=== PATIENT | female | born 1945 | race Caucasian/White ===

== ENCOUNTER → 2016-07-26 | Outpatient (CLI) | payer BC ==
[~2016-07-26] MED LIST: ASPCH81X PO; CEPH500C2 PO; HYDR-5688 PO; LOVA40TA3 PO; METO25TA3 PO; POTA12PO5 PO; SENNTAB23 PO; TEMA30CA4 PO; VALS160T58 PO; ZNT/150 PO
[2016-07-26 12:45] LABS: BASO % 0.5 %; BASO ABS # 0.06 K/uL (0-0.2); COMPLETE YES; EOS % 1.7 %; HEMATOCRIT 42.3 % (37-47); IG% 0.2 %; LYMPH % 25.3 %; LYMPH ABS # 3.24 K/uL (1.2-3.4); MEAN CELL VOLUME 87.6 fL (80-100); MEAN CORPUSCULAR HGB CONC 34.3 g/dl (32-36); MEAN PLATELET VOLUME 9.4 fL (7.4-10.4); MONO % 5.9 %; NEUT % 66.4 %; PLATELET COUNT 354 K/uL (130-400); RED BLOOD COUNT 4.83 M/uL (4.2-5.4); WHITE BLOOD COUNT 12.83 K/uL (4.8-10.8)
[2016-07-26 13:14] LABS: BLOOD UREA NITROGEN 13 mg/dl (7-18); BUN/CREATININE RATIO 15.5 (10-20); CALCIUM 8.8 mg/dl (8.5-10.1); CARBON DIOXIDE 28 mmol/L (21-32); CHLORIDE 101 mmol/L (98-107); CHOLESTEROL 199 mg/dl (0-200); CREATININE 0.86 mg/dl (0.60-1.20); GLUCOSE 108 mg/dl (70-99); POTASSIUM 3.6 mmol/L (3.5-5.1); SODIUM 139 mmol/L (136-145)
[2016-07-26 13:17] LABS: ALKALINE PHOSPHATASE 70 U/L (45-117); ALT/SGPT 34 U/L (12-78); AST/SGOT 15 U/L (15-37); CHOLESTEROL/HDL RATIO 3.1; HDL CHOLESTEROL 64 mg/dl; LDL CHOLESTEROL CALCULATED 114 mg/dl; TRIGLYCERIDES 105 mg/dl (0-150); VERY LOW DENSITY LIPOPROT CALC 21 mg/dl
[2016-07-26 13:24] LABS: RATIO 9.5 mcg/mg (0-30.0)
[2016-07-26 13:41] LABS: ESTIMATED AVERAGE GLUCOSE 151 mg/dl; HA1C FLAG Normal (Normal)
== END | disposition home or self-care (01) ==
LOC: C.LABPBG 09:47
PROVIDERS: ATTEND Family Medicine
DX: I10 Essential (primary) hypertension (principal); E78.00 Pure hypercholesterolemia, unspecified; E11.9 Type 2 diabetes mellitus without complications; I25.10 Atherosclerotic heart disease of native coronary artery without angina pectoris; E55.9 Vitamin D deficiency, unspecified

== ENCOUNTER → 2016-09-13 | Outpatient (CLI) | payer BC ==
[~2016-09-13] MED LIST changes: -CEPH500C2 PO; -HYDR-5688 PO
[2016-09-13 12:21] LABS: BASO % 0.2 %; BASO ABS # 0.03 K/uL (0-0.2); COMPLETE YES; EOS % 1.7 %; IG% 0.4 %; LYMPH % 21.7 %; LYMPH ABS # 2.87 K/uL (1.2-3.4); MEAN CELL VOLUME 88.3 fL (80-100); MEAN CORPUSCULAR HEMOGLOBIN 29.8 pg (25-34); MEAN CORPUSCULAR HGB CONC 33.8 g/dl (32-36); MEAN PLATELET VOLUME 9.3 fL (7.4-10.4); MONO % 6.3 %; NEUT % 69.7 %; PLATELET COUNT 399 K/uL (130-400); RED BLOOD COUNT 4.53 M/uL (4.2-5.4)
== END | disposition home or self-care (01) ==
LOC: C.LABPBG 10:30
PROVIDERS: ATTEND Family Medicine
DX: D72.829 Elevated white blood cell count, unspecified (principal)

== ENCOUNTER → 2016-10-22 | Outpatient (CLI) | payer BC ==
[2016-10-22 15:39] LABS: BASO % 0.3 %; BASO ABS # 0.06 K/uL (0-0.2); COMPLETE YES; HEMATOCRIT 42.8 % (37-47); IG% 0.3 %; LYMPH % 19.1 %; LYMPH ABS # 3.34 K/uL (1.2-3.4); MEAN CELL VOLUME 88.2 fL (80-100); MEAN CORPUSCULAR HEMOGLOBIN 29.3 pg (25-34); MEAN CORPUSCULAR HGB CONC 33.2 g/dl (32-36); MEAN PLATELET VOLUME 9.2 fL (7.4-10.4); MONO % 4.5 %; NEUT % 74.8 %; PLATELET COUNT 431 K/uL (130-400); RED BLOOD COUNT 4.85 M/uL (4.2-5.4); WHITE BLOOD COUNT 17.51 K/uL (4.8-10.8)
== END | disposition home or self-care (01) ==
LOC: C.LAB1850 14:14
PROVIDERS: ATTEND Family Medicine
DX: D72.829 Elevated white blood cell count, unspecified (principal)

== ENCOUNTER → 2017-01-04 | Outpatient (CLI) | payer BC ==
--- NOTE | 2017-01-05 07:58 | MAMMOGRAPHY REPORT ---
BILATERAL DIGITAL SCREENING MAMMOGRAM WITH CAD: 01/04/2017 CLINICAL HISTORY: Routine screening. TECHNIQUE: Bilateral CC and MLO views were obtained. Current study was also evaluated with a Compute r Aided Detection (CAD) system. COMPARISON: Comparison is made to exams dated: 08/15/2015 mammogram, 08/12/2014 mammogram, 08/10/2013 m ammogram, 07/03/2012 mammogram, 07/01/2011 mammogram, and 06/30/2010 mammogram - [facility]. BREAST COMPOSITION: The tissue of both breasts is almost entirely fatty. FINDINGS: A 6 mm oval circumscribed mass in the lateral right breast is stable in size and appearance dating back to at least 04/20/2007, therefore likely benign. There are scattered benign-appearing c oarse and rodlike calcifications bilaterally. No suspicious mass, architectural distortion or cluste r of microcalcifications is seen. IMPRESSION: ACR BI-RADS CATEGORY 1: NEGATIVE There is no mammographic evidence of malignancy. A 1 year screening mammogram is recommended. The pa tient will receive written notification of the results. Approximately 10% of breast cancers are not detected with mammography. A negative mammographic report should not delay biopsy if a clinically suggestive mass is present. Glo Aranda M.D. ay/:01/04/2017 15:04:37 Skilled Nursing Facility Counselor: Marva HOROWITZ(R)(M), [facility] letter sent: Normal 1/2 BI-RADS Code: ACR BI-RADS Category 1: Negative
== END | disposition home or self-care (01) ==
LOC: C.MAMM 14:35
PROVIDERS: ATTEND Obstetrics & Gynecology
DX: Z12.31 Encounter for screening mammogram for malignant neoplasm of breast (principal)

== ENCOUNTER → 2017-02-21 | Outpatient (CLI) | payer BC ==
[2017-02-21 12:16] LABS: ALT/SGPT 35 U/L (12-78); AST/SGOT 16 U/L (15-37); BLOOD UREA NITROGEN 12 mg/dl (7-18); BUN/CREATININE RATIO 15.3 (10-20); CALCIUM 9.1 mg/dl (8.5-10.1); CARBON DIOXIDE 28 mmol/L (21-32); CHLORIDE 102 mmol/L (98-107); CHOLESTEROL 162 mg/dl (0-200); CREATININE 0.76 mg/dl (0.60-1.20); GLUCOSE 102 mg/dl (70-99); POTASSIUM 3.7 mmol/L (3.5-5.1); SODIUM 139 mmol/L (136-145); TRIGLYCERIDES 130 mg/dl (0-150); VERY LOW DENSITY LIPOPROT CALC 26 mg/dl
[2017-02-21 12:26] LABS: ALKALINE PHOSPHATASE 78 U/L (45-117); CHOLESTEROL/HDL RATIO 2.5; HDL CHOLESTEROL 64 mg/dl; LDL CHOLESTEROL CALCULATED 72 mg/dl
== END | disposition home or self-care (01) ==
LOC: C.LABPBG 09:21
PROVIDERS: ATTEND Family Medicine
DX: I10 Essential (primary) hypertension (principal); E78.00 Pure hypercholesterolemia, unspecified; E11.9 Type 2 diabetes mellitus without complications; I25.10 Atherosclerotic heart disease of native coronary artery without angina pectoris

== ENCOUNTER → 2017-03-09 | Outpatient (CLI) | payer BC ==
[2017-03-09 12:02] LABS: BASO % 0.4 %; BASO ABS # 0.05 K/uL (0-0.2); COMPLETE YES; EOS % 1.6 %; HEMATOCRIT 40.2 % (37-47); IG% 0.4 %; LYMPH % 24.2 %; LYMPH ABS # 3.01 K/uL (1.2-3.4); MEAN CELL VOLUME 84.3 fL (80-100); MEAN CORPUSCULAR HEMOGLOBIN 28.9 pg (25-34); MEAN CORPUSCULAR HGB CONC 34.3 g/dl (32-36); MEAN PLATELET VOLUME 9.4 fL (7.4-10.4); MONO % 5.5 %; NEUT % 67.9 %; PLATELET COUNT 339 K/uL (130-400); RED BLOOD COUNT 4.77 M/uL (4.2-5.4); WHITE BLOOD COUNT 12.45 K/uL (4.8-10.8)
== END | disposition home or self-care (01) ==
LOC: C.LABPBG 10:57
PROVIDERS: ATTEND Family Medicine
DX: D72.829 Elevated white blood cell count, unspecified (principal)

== ENCOUNTER → 2017-08-02 | Outpatient (CLI) | payer BC ==
--- NOTE | 2017-08-02 13:45 | DIAGNOSTIC IMAGING REPORT ---
R HIP UNILATERAL 2 VIEWS CLINICAL HISTORY: M25.551 Right hip [id number] pain COMPARISON: None. DISCUSSION: Mild degenerative narrowing right hip joint space. Mild sclerosis of the acetabular margins. Mild peripheral osteophytic reaction from the acetabulum. No evidence for fracture or dislocation. No acetabular protrusion. There is no evidence for soft tissue swelling. IMPRESSION: Mild/moderate degenerative change right hip. No acute process. The above report was generated using voice recognition software. It may contain grammatical, syntax or spelling errors. Electronically signed by: Emmett Gonzales M.D. 08/02/2017 1:43 PM Dictated Date/Time: 08/02/2017 1:43 PM
--- NOTE | 2017-08-02 13:59 | DIAGNOSTIC IMAGING REPORT ---
LUMBAR SPINE 5 VIEWS HISTORY: M54.5 Low back painR29.898 Leg weakness COMPARISON: Lumbar spine 10/22/2014. FINDINGS: There is no fracture. No subluxation. Disc spaces within the lumbar spine are preserved. Moderate facet osteoarthritis within the mid to lower lumbar spine which has progressed. Mild to moderate degenerative disc disease at T10-11 which has progressed. IMPRESSION: 1. No fracture or subluxation within the lumbar spine. 2. Moderate facet osteoarthritis within the mid to lower lumbar spine. This has progressed. 3. Progressive mild to moderate degenerative disc disease at T10-11. Electronically signed by: Sean Casanova M.D. 08/02/2017 1:58 PM Dictated Date/Time: 08/02/2017 1:56 PM
== END | disposition home or self-care (01) ==
LOC: C.RADBC 13:01
PROVIDERS: ATTEND Family Medicine
DX: M25.551 Pain in right hip (principal); M54.5 Low back pain; R29.898 Other symptoms and signs involving the musculoskeletal system

== ENCOUNTER → 2017-10-11 | Outpatient (CLI) | payer BC ==
[2017-10-11 13:29] LABS: BASO % 0.1 %; BASO ABS # 0.02 K/uL (0-0.2); EOS % 0.9 %; EOS ABS # 0.15 K/uL (0-0.5); HEMATOCRIT 41.5 % (37-47); HEMOGLOBIN 14.1 g/dL (12.0-16.0); IG# 0.07 K/uL (0.00-0.02); LYMPH % 17.6 %; MEAN CELL VOLUME 87.4 fL (80-100); MEAN CORPUSCULAR HEMOGLOBIN 29.7 pg (25-34); MEAN PLATELET VOLUME 9.5 fL (7.4-10.4); MONO % 6.5 %; MONO ABS # 1.15 K/uL (0.11-0.59); NEUT % 74.5 %; NEUT ABS # 13.13 K/uL (1.4-6.5); PLATELET COUNT 408 K/uL (130-400); RED CELL DISTRIBUTION WIDTH CV 14.2 % (11.5-14.5); RED CELL DISTRIBUTION WIDTH SD 45.1 fL (36.4-46.3); WHITE BLOOD COUNT 17.62 K/uL (4.8-10.8)
[2017-10-11 13:40] LABS: HEMOGLOBIN A1C 7.2 % (4.5-5.6)
[2017-10-11 14:12] LABS: ALBUMIN 3.1 gm/dl (3.4-5.0); ALKALINE PHOSPHATASE 70 U/L (45-117); ALT/SGPT 33 U/L (12-78); AST/SGOT 12 U/L (15-37); BLOOD UREA NITROGEN 17 mg/dl (7-18); CALCIUM 8.8 mg/dl (8.5-10.1); CARBON DIOXIDE 27 mmol/L (21-32); CHOLESTEROL 187 mg/dl (0-200); CREATININE 0.89 mg/dl (0.60-1.20); GLUCOSE 121 mg/dl (70-99); LDL CHOLESTEROL CALCULATED 103 mg/dl; POTASSIUM 3.5 mmol/L (3.5-5.1); SODIUM 138 mmol/L (136-145); TOTAL PROTEIN 6.7 gm/dl (6.4-8.2)
== END | disposition home or self-care (01) ==
LOC: C.LABPBG 08:58
PROVIDERS: ATTEND Family Medicine
DX: I10 Essential (primary) hypertension (principal); E78.00 Pure hypercholesterolemia, unspecified; E11.9 Type 2 diabetes mellitus without complications; I25.10 Atherosclerotic heart disease of native coronary artery without angina pectoris; D72.829 Elevated white blood cell count, unspecified; E55.9 Vitamin D deficiency, unspecified

== ENCOUNTER → 2017-12-14 | Outpatient (CLI) | payer BC ==
--- NOTE | 2017-12-14 13:32 | DIAGNOSTIC IMAGING REPORT ---
NUCLEAR GASTRIC EMPTYING STUDY: CLINICAL HISTORY: Nausea, early satiety. COMPARISON STUDY: None TECHNIQUE: Following the oral administration of 1.1 mCi of technetium 99m sulfur colloid in egg sandwich and 8 ounces of water, static abdominal images are performed anteriorly and posteriorly at 0 minutes, 1 hour, 2 hours, and 4 hour time intervals. Gastric emptying was calculated utilizing the geometric mean method. FINDINGS: There is approximately 48 % gastric activity remaining at the 1 hour time interval, 13 % at the 2 hour time interval (normal is less than 60%), and 0 % remaining at the 4 hour time interval (normal is less than 10%). These findings are consistent with a normal study IMPRESSION: Findings are consistent with a normal study Electronically signed by: Brandon Gentile M.D. 12/14/2017 1:30 PM Dictated Date/Time: 12/14/2017 1:30 PM
== END | disposition home or self-care (01) ==
LOC: C.NUCL 08:27
PROVIDERS: ATTEND Family Medicine
DX: R68.81 Early satiety (principal); R11.0 Nausea

== ENCOUNTER 2022-11-04 07:26 | Observation (INO) ==
--- NOTE | 2022-10-04 11:32 | PAT Medication Instructions ---
Medication Instructions Date of Service October 04, 2022 Home Medications Medication Instructions Recorded cholecalciferol (vitamin D3) 50 50 mcg PO DAILY #30 caps 10/09/19 mcg (2,000 unit) capsule hydrochlorothiazide 12.5 mg tablet 12.5 mg PO DAILY #90 tabs 01/14/22 lovastatin 40 mg tablet 40 mg PO PM #90 tabs 01/14/22 nitroglycerin 0.4 mg sublingual 0.4 mg sublingual UD PRN chest 01/14/22 tablet pain #25 tabs omeprazole 20 mg tablet,delayed 20 mg PO BID #180 tabs 01/14/22 release metformin 500 mg tablet 250 mg PO BID #180 tabs 02/12/22 Wheeled Walker #1 ea 05/10/22 blood sugar diagnostic (OneTouch #100 ea 05/10/22 Ultra Test strips) ferrous sulfate 325 mg (65 mg 325 mg PO DAILY #90 tabs 06/11/22 iron) tablet,delayed release potassium chloride 20 mEq 20 meq PO BID #180 tabs 06/11/22 tablet,extended release gabapentin 600 mg tablet 600 mg PO HS #90 tabs 07/30/22 temazepam 15 mg capsule 15 mg PO HS PRN Sleep #30 caps 07/30/22 valsartan 320 mg tablet (Diovan) 320 mg PO DAILY #90 tabs 09/08/22 aspirin 81 mg tablet 81 mg PO QAM cholecalciferol (vitamin D3) 50 mcg (2,000 unit) capsule 50 mcg PO DAILY hydrochlorothiazide 12.5 mg tablet 12.5 mg PO DAILY lovastatin 40 mg tablet 40 mg PO PM nitroglycerin 0.4 mg sublingual tablet 0.4 mg sublingual UD PRN omeprazole 20 mg tablet,delayed release 20 mg PO BID metformin 500 mg tablet 250 mg PO BID ferrous sulfate 325 mg (65 mg iron) tablet,delayed release 325 mg PO DAILY potassium chloride 20 mEq tablet,extended release 20 meq PO BID gabapentin 600 mg tablet 600 mg PO HS temazepam 15 mg capsule 15 mg PO HS PRN valsartan 320 mg tablet (Diovan) 320 mg PO DAILY biotin 5 mg tablet 5 mg PO QAM Continue as directed nitroglycerin 0.4 mg sublingual tablet 0.4 mg sublingual UD PRN(if needed) STOP taking 2 weeks before surgery (or as soon as possible if surgery is within 2 weeks) biotin 5 mg tablet 5 mg PO QAM DO NOT take the morning of surgery cholecalciferol (vitamin D3) 50 mcg (2,000 unit) capsule 50 mcg PO DAILY hydrochlorothiazide 12.5 mg tablet 12.5 mg PO DAILY metformin 500 mg tablet 250 mg PO BID ferrous sulfate 325 mg (65 mg iron) tablet,delayed release 325 mg PO DAILY potassium chloride 20 mEq tablet,extended release 20 meq PO BID valsartan 320 mg tablet (Diovan) 320 mg PO DAILY Take morning of surgery With a small sip of water, OTHERWISE NOTHING TO EAT OR DRINK AFTER MIDNIGHT: aspirin 81 mg tablet 81 mg PO QAM (unless directed otherwise by surgeon) omeprazole 20 mg tablet,delayed release 20 mg PO BID Take evening before surgery lovastatin 40 mg tablet 40 mg PO PM omeprazole 20 mg tablet,delayed release 20 mg PO BID metformin 500 mg tablet 250 mg PO BID potassium chloride 20 mEq tablet,extended release 20 meq PO BID gabapentin 600 mg tablet 600 mg PO HS temazepam 15 mg capsule 15 mg PO HS PRN(if needed) Other Notes If you have any questions please call us at [phone] or [phone] or [phone] or [phone]
--- NOTE | 2022-10-11 13:31 | Anesthesiology Consultation ---
Date of Service October 11, 2022 Assessment & Plan (1) Encounter for pre-operative examination: - leukocytosis (15) with left shift. Case discussed with Dr. Sprague who advised patient will need medical clearance prior to surgery. Surgeon's office and patient made aware. - [facility] pre-op evaluation evaluated 10/20/22. - check BSG am DOS. Chart Review Chart Review: Pending: Refer to Additional Notes / Consult section and Patient seen in Pre Admission Testing Teaching & Discussion Pre-Anesthesia Teaching/Discussion Notes: Instructed NPO after midnight before surgery, except medications with 15 cc of water. Medication instructions provided according to the PAT guidelines. History Surgery Operation Date: 11/04/22 09:30 Proposed Procedures p Left Reverse Total Shoulder Arthroplasty - Kyle Garcia M.D. Height/Weight Height: 5 ft 1 in Weight: 80.4 kg Allergies Allergy/AdvReac Type Severity Reaction Status Date / Time MOLLY Inhibitors Allergy Unknown Cough Verified 10/04/22 10:21 azithromycin [From Zithromax] Allergy Unknown Unknown Verified 10/04/22 10:21 doxycycline Allergy Unknown Nausea Verified 10/04/22 10:21 nitroglycerin Allergy Unknown Headache Verified 10/04/22 10:21 [From Nitro-Bid] Sulfa (Sulfonamide Allergy Unknown Rash Verified 10/04/22 10:21 Antibiotics) morphine AdvReac Mild NAUSEA Verified 10/11/22 13:42 adhesive AdvReac Unknown RASH WITH Verified 10/04/22 10:21 PROLONGED WEAR Medications Home Medications Medication Instructions Recorded Confirmed Last Taken aspirin 81 mg tablet 81 mg PO QAM #30 tabs 01/28/19 10/04/22 Unknown cholecalciferol (vitamin D3) 50 50 mcg PO DAILY #30 caps 10/09/19 10/04/22 Unknown mcg (2,000 unit) capsule hydrochlorothiazide 12.5 mg tablet 12.5 mg PO DAILY #90 tabs 01/14/22 10/04/22 Unknown lovastatin 40 mg tablet 40 mg PO PM #90 tabs 01/14/22 10/04/22 Unknown nitroglycerin 0.4 mg sublingual 0.4 mg sublingual UD PRN chest 01/14/22 10/04/22 Unknown tablet pain #25 tabs omeprazole 20 mg tablet,delayed 20 mg PO BID #180 tabs 01/14/22 10/04/22 Unknown release metformin 500 mg tablet 250 mg PO BID #180 tabs 02/12/22 10/04/22 Unknown Wheeled Walker #1 ea 05/10/22 06/11/22 Unknown blood sugar diagnostic (OneTouch #100 ea 05/10/22 06/11/22 Unknown Ultra Test strips) ferrous sulfate 325 mg (65 mg 325 mg PO DAILY #90 tabs 06/11/22 10/04/22 Unknown iron) tablet,delayed release potassium chloride 20 mEq 20 meq PO BID #180 tabs 06/11/22 10/04/22 Unknown tablet,extended release gabapentin 600 mg tablet 600 mg PO HS #90 tabs 07/30/22 10/04/22 Unknown temazepam 15 mg capsule 15 mg PO HS PRN Sleep #30 caps 07/30/22 10/04/22 Unknown valsartan 320 mg tablet (Diovan) 320 mg PO DAILY #90 tabs 09/08/22 10/04/22 Unknown biotin 5 mg tablet 5 mg PO QAM 10/04/22 10/04/22 Unknown tramadol 50 mg tablet 50 mg PO Q8H PRN pain #30 tabs 10/07/22 Unknown Past Medical History Medical History (Updated 10/11/22 @ 13:43 by Dolores Vinson PA-C) Asthma has not used inhaler in >1.5 yrs 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 Exercise / Class Metabolic Activity II 4-5 Yardwork/Stairs/Walk up hill (denies chest discomfort or shortness of breath with 1 FOS) Past Family History Family History Mother Myocardial infarction Hypertension Father Sister Colorectal cancer Sister , age 78 Myocardial infarction Coronary heart disease Son Myocardial infarction, Onset Age: 52 Other Adverse anesthesia outcome Denies family history of Ovarian cancer Prostate cancer Breast cancer Lung cancer Stroke Past Surgical History Surgical History History of appendectomy History of excision of epidermal inclusion cyst (01/2016) L gluteal site, Dr. Benson History of hysterectomy Hx of colonoscopy S/P cardiac catheterization (08/13/19) Angiographically mild to moderate 2 vessel occlusive coronary disease, patent stents in LAD. Mild reduced left ventricular systolic function. Normal LVEDP S/P carpal tunnel release S/P coronary artery stent placement (11/2014) x [facility]- [facility] Dr Miquel Sweeney last visit ?2021 S/P tonsillectomy and adenoidectomy Past Anesthesia History No Hx of Anesthesia Complications and No Family Hx of Anesthesia Complications History of PONV History of PONV (with catheterization) and Hx of Motion Sickness Social History Smoking Status: Never smoker Do You Dip or Chew Tobacco: No Hx Alcohol Use: No Hx Substance Use: No substance use type: does not use Review of Systems Snoring, denies witnessed apneas. Patient denies chest pain, shortness of breath, dyspnea on exertion, fever, chills, cough, wheezing, or palpitations. Physical Exam Vital Signs Vitals BP 155/85 P 83 TEMP 97.7 SP02 96% on RA RESP 18 Physical Full cervical extension range of motion without pain TMD 3.5 finger breadths Mallampati Score 2 Dentition: lower side bridge-removable, denies chipped or loose teeth, caps/ crowns, implants Lungs: normal respiratory effort. Good air movement, clear throughout to auscultation, no adventitious breath sounds Cardiac: regular rate and rhythm, no murmurs noted Carotid arteries: negative bruit bilat Lab Results Anesthesia Preop Results Results Anesthesia Widget: WBC 15.46 K/ul (4.8-10.8) H 10/11/22 Hgb 14.4 g/dl (12.0-16.0) 10/11/22 Hct 42.2 % (37.0-47.0) 10/11/22 Plt 366 K/uL (130-400) 10/11/22 Na 137 mmol/L (136-145) 10/11/22 K 3.9 mmol/L (3.5-5.1) 10/11/22 Cl 104 mmol/L (98-107) 10/11/22 CO2 26 mmol/L (21-32) 10/11/22 BUN 12 mg/dl (6-23) 10/11/22 Creat 0.71 mg/dl (0.6-1.2) 10/11/22 Glucose Level 127 mg/dl (70-99(Fasting)) H 10/11/22 PT 10.6 Seconds (9.0-12.0) 10/11/22 PTT 28.5 Seconds (21.0-31.0) 10/11/22 INR 1.0 (0.9-1.1) 10/11/22 HA1c 6.6 % (4.5-5.6) H 10/11/22 Urine Color Yellow 10/11/22 Urine Appearance Clear (Clear) 10/11/22 Urine pH 5.0 (4.5-7.5) 10/11/22 Urine Specific [place] 1.015 (1.000-1.030) 10/11/22 Urine Protein Negative (Negative) 10/11/22 Urine Glucose (UA) Negative (Negative) 10/11/22 Urine Ketones Negative (Negative) 10/11/22 Urine Blood Negative (Negative) 10/11/22 Urine Nitrite Negative (Negative) 10/11/22 Urine Bilirubin Negative (Negative) 10/11/22 Urine Urobilinogen Negative (Negative) 10/11/22 Urine Leukocyte Esterase 2+ (Negative) H 10/11/22 Urine WBC (Auto) 5-10 /hpf (0-5) H 10/11/22 Urine RBC (Auto) 0-4 /hpf (0-4) 10/11/22 Urine Hyaline Casts (Auto) 1-5 /lpf (0-5) 10/11/22 Urine Epithelial Cells (Auto) >30 /lpf (0-5) H 10/11/22 Urine Bacteria (Auto) Negative (Negative) 10/11/22 Blood Type O Positive 10/11/22 Antibody Screen NEGATIVE 10/11/22 Testing Electrocardiogram Date: 10/11/22 NSR, rate 77 bpm Chest X-Ray Date: 10/11/22 No acute cardiopulmonary findings Large hiatal hernia Cardiac Catheterization Date: 08/13/19 Left main: angiographically normal LAD: widely patent medium size first diagonal artery, proximal 60% stenosis Cx: 40-50% stenosis RCA: angiographically nonobstructive EF 50% Angiographically mild to moderate 2 vessel occlusive coronary disease, patent stents in LAD COVID-19 Risk Screen Screening Information COVID-19 Screen Date: 10/11/22 Exposure 21 Days Family/Household +COVID Last 21 Days: No Exposure 10 Days Any COVID Exposure Last 10 Days: No Symptoms Last 10 Days Experienced COVID Sx Last 10 Days: No + COVID 0-90 Days COVID + in Last 0-90 Days: No
--- NOTE | 2022-11-02 14:30 | History & Physical Report ---
Date of Service November 02, 2022 Assessment & Plan (1) Primary osteoarthritis, left shoulder: Plan: She has severe left shoulder glenohumeral joint arthritis, but with diffuse rotator cuff tearing and a full-thickness tear of the anterior supraspinatus, with some associated fatty atrophy of the supraspinatus and infraspinatus muscle bellies. She also has fairly significant posterior glenoid wear. With these findings, her most reliable surgical treatment option would be reverse total shoulder arthroplasty. We discussed further conservative management with injections versus definitive surgical intervention, and she would much prefer the latter at this point. I think is very reasonable given her long history of injections with decreasing efficacy over time. We will plan for left reverse total shoulder arthroplasty. She will require cardiac clearance. Risks, benefits, and alternatives of surgery were explained in detail. The surgical procedure, as well as postoperative recovery and rehabilitation, was also explained in detail. Risks include bleeding; infection; damage to surrounding structures such as nerves, blood vessels, and tendons that run in the area; persistent pain or stiffness; hardware failure; dislocation; brachial plexus palsy; blood clots; or need for further surgery. The patient understands all of this and wishes to proceed with surgery. Risks will be reviewed on the day of surgery and informed consent obtained. History of Present Illness Chief Complaint: Left shoulder pain Primary Care Provider: Leatha Perez DO Ms. Almazan is a 76-year-old [id number] female referred over from Dr. Whittington's team for bilateral shoulder pain, left greater than right. It has been going on for at least 3 years with gradual progressive worsening. She has received bilateral shoulder injections for many years, the last one on her left side in May 2022. She has been getting decreasing efficacy from these injections over time. She most recently had another steroid injection on her right shoulder in August, but not her left since she is interested in shoulder replacement surgery on that side. She did have acute worsening of her pain when she pulled herself out of bed earlier this year. Of note, she has a history of coronary artery disease and has a single stent that was placed about 3 years ago. She is on aspirin 81 mg daily, but no other anticoagulants. She denies history of myocardial infarction. She will also has diabetes and is on metformin. She also has hypertension and hyperlipidemia. Allergies Allergy/AdvReac Type Severity Reaction Status Date / Time MOLLY Inhibitors Allergy Unknown Cough Verified 10/20/22 11:48 azithromycin [From Zithromax] Allergy Unknown Unknown Verified 10/20/22 11:48 doxycycline Allergy Unknown Nausea Verified 10/20/22 11:48 nitroglycerin Allergy Unknown Headache Verified 10/20/22 11:48 [From Nitro-Bid] Sulfa (Sulfonamide Allergy Unknown Rash Verified 10/20/22 11:48 Antibiotics) morphine AdvReac Mild NAUSEA Verified 10/20/22 11:48 adhesive AdvReac Unknown RASH WITH Verified 10/20/22 11:48 PROLONGED WEAR Home Medications Medication Instructions Recorded Confirmed Type aspirin 81 mg tablet 81 mg PO QAM #30 tabs 01/28/19 10/20/22 History cholecalciferol (vitamin D3) 50 50 mcg PO DAILY #30 caps 10/09/19 10/20/22 Rx mcg (2,000 unit) capsule lovastatin 40 mg tablet 40 mg PO PM #90 tabs 01/14/22 10/20/22 Rx nitroglycerin 0.4 mg sublingual 0.4 mg sublingual UD PRN chest 01/14/22 10/20/22 Rx tablet pain #25 tabs omeprazole 20 mg tablet,delayed 20 mg PO BID #180 tabs 01/14/22 10/20/22 Rx release metformin 500 mg tablet 250 mg PO BID #180 tabs 02/12/22 10/20/22 Rx Wheeled Walker #1 ea 05/10/22 10/20/22 Rx blood sugar diagnostic (OneTouch #100 ea 05/10/22 10/20/22 Rx Ultra Test strips) ferrous sulfate 325 mg (65 mg 325 mg PO DAILY #90 tabs 06/11/22 10/20/22 Rx iron) tablet,delayed release potassium chloride 20 mEq 20 meq PO BID #180 tabs 06/11/22 10/20/22 Rx tablet,extended release gabapentin 600 mg tablet 600 mg PO HS #90 tabs 07/30/22 10/20/22 Rx temazepam 15 mg capsule 15 mg PO HS PRN Sleep #30 caps 07/30/22 10/20/22 Rx valsartan 320 mg tablet (Diovan) 320 mg PO DAILY #90 tabs 09/08/22 10/20/22 Rx biotin 5 mg tablet 5 mg PO QAM 10/04/22 10/20/22 History tramadol 50 mg tablet 50 mg PO Q8H PRN pain #30 tabs 10/07/22 10/20/22 Rx Past Med/Surg History Medical History (Updated 10/14/22 @ 07:22 by TAWANDA Guan) Asthma has not used inhaler in >1.5 yrs 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 Benson History of hysterectomy Hx of colonoscopy S/P cardiac catheterization (08/13/19) Angiographically mild to moderate 2 vessel occlusive coronary disease, patent stents in LAD. Mild reduced left ventricular systolic function. Normal LVEDP S/P carpal tunnel release S/P coronary artery stent placement (11/2014) x 2- [facility] [place] follows w/ Dr Miquel Sweeney last visit ?2021 S/P tonsillectomy and adenoidectomy Family History Mother Myocardial infarction Hypertension Father Sister Colorectal cancer Sister , age 78 Myocardial infarction Coronary heart disease Son Myocardial infarction, Onset Age: 52 Other Adverse anesthesia outcome Denies family history of Ovarian cancer Prostate cancer Breast cancer Lung cancer Stroke Social History Smoking Status: Never smoker Second Hand Exposure: No; Do You Dip or Chew Tobacco: No; Hx Alcohol Use: No Hx Substance Use: No Preferred Language: Setswana Communication Ability: Effective Visual Impairment: No Limitations Hearing Ability: Normal Cake Mixer Required: No Beliefs That Will Affect Care: None marital status: Current Living Situation: Alone current occupational status: retired How many Children do You have: 2 Feels Safe at Home: Yes Childhood Exposure to Second-Hand Smoke: No Diet: regular Diet Comment: Regular caffeine: Yes (tea) during the past year weight has: remained stable Dental Care, Regularly: Yes Physical Activity Frequency: 1-2 Times per Week Seatbelt Use: always Sunscreen Use: No Assistive Devices: Denture - Lower Physical Exam Physical Exam: Examination of bilateral shoulders reveals moderate limitation in shoulder range of motion bilaterally due to pain, left worse than right, with palpable crepitus during motion. She can only achieve about 70 degrees of active abduction, 15 degrees of external rotation, and internal rotation to the PSIS level on her left. Rotator cuff strength is globally weak on the left. Results & Data Diagnostic Findings Previous x-rays of bilateral shoulders from August 2022 were reviewed. They show severe glenohumeral joint arthritis with joint space narrowing and osteophyte formation, overall left worse than right. On the right side, looks like there is a large loose body inferiorly, with osteophyte curving around it. No obvious proximal migration of the humeral head bilaterally. Bones appear osteopenic. MRI of the left shoulder obtained this morning was independently interpreted by me. It confirms severe glenohumeral joint arthritis. There is significant posterior glenoid wear with a type B2 glenoid, as well as some posterior subluxation. There is diffuse rotator cuff tendinopathy and partial-thickness tearing, with an area of full-thickness tearing of the anterior supraspinatus. There is moderate fatty atrophy of the supraspinatus and infraspinatus muscle bellies.
[~2022-11-04 07:26] MED LIST changes: +ACETAMINOPHEN 500 MG TAB PO SCH; -ASPCH81X PO; +BUPIVACAINE 0.5 % 5 MG/1 ML PF 10ML VIAL ONE; +CeleBREX 200 MG CAP PO SCH; +FAMOTIDINE 20 MG TAB PO SCH; +GABAPENTIN 300 MG CAP PO SCH; -LOVA40TA3 PO; +LR 15ML/HR IV SCH; -METO25TA3 PO; +METOCLOPRAMIDE HCL 10 MG TABLET PO SCH; -POTA12PO5 PO; -SENNTAB23 PO; -TEMA30CA4 PO; +TRANEXAMIC ACID 1,000 MG **IV Pre-op IV SCH; -VALS160T58 PO; -ZNT/150 PO; +ceFAZolin 2000MG 2,000 MG/15 ML SYR IV SCH; +dexAMETHasone 4 MG TAB PO SCH
[2022-11-04] MEDS ORDERED: ONDANSETRON INJ 2 MG/ML 2 ML VIAL ONE (07:33)
[2022-11-04] MEDS ORDERED: DEXAMETHASONE SOD INJ 4 MG/ML VIAL ONE (07:33)
[2022-11-04] MEDS ORDERED: ROCURONIUM BROMIDE 10 MG/ML 5 ML VIAL IV ONE (07:33)
[2022-11-04] MEDS ORDERED: PROPOFOL IV EMULSION 10 MG/ML 20 ML VIAL IV ONE (07:33)
[2022-11-04] MEDS ORDERED: SUGAMMADEX SODIUM 200 MG/2 ML VIAL IV ONE (07:34)
[2022-11-04] MEDS ORDERED: MIDAZOLAM HCL 1 MG/ML 2ML VIAL ONE (07:34)
[2022-11-04] MEDS ORDERED: fentaNYL citrate PF 100 MCG/2 ML VIAL ONE (07:34)
--- NOTE | 2022-11-04 09:09 | History & Physical Bridge Note ---
Date of Service November 04, 2022 History & Physical Bridge Note I have examined the patient, reviewed the History & Physical and in the interval since the performance of the History & Physical I have noted the following changes of clinical significance: no changes noted
[2022-11-04] MEDS ORDERED: ePHEDrine sulfate 50 MG/ML AMP IV PRN (09:21)
[2022-11-04] MEDS ORDERED: ATROPINE SULFATE 0.1 MG/ML 10ML SYR IV PRN (09:21)
[2022-11-04] MEDS ORDERED: fentaNYL citrate PF 100 MCG/2 ML VIAL IV PRN (09:21)
[2022-11-04] MEDS ORDERED: ONDANSETRON INJ 2 MG/ML 2 ML VIAL IV PRN ×2 (09:21→13:09)
[2022-11-04] MEDS ORDERED: GLYCOPYRROLATE 0.2 MG/ML VIAL ONE (10:10)
--- NOTE | 2022-11-04 11:12 | Operative Report ---
Post Operative Report Pre & Post Diagnosis Operation Date: 11/04/22 09:30 Pre-Op Diagnosis: Left shoulder primary glenohumeral joint arthritis with rotator cuff tear Post-Op Diagnosis: Left shoulder primary glenohumeral joint arthritis with rotator cuff tear I identified the patient and participated in the time-out.: Yes Procedure Operation Date: 11/04/22 09:30 Actual Procedures Left reverse total shoulder arthroplasty (75087) Open biceps tenodesis (60366) - Kyle Garcia M.D. Surgeon Kyle Garcia MD Program Therapist Jaziel Bhat PA-C Estimated Blood Loss 50 Findings Consistent with Post-Op Diagnosis Specimens None Anesthesia Type General Regional Complications none Disposition Disposition: Recovery Room Indications Ms. Almazan is a 76-year-old female with severe chronic left shoulder pain. History, clinical exam, and imaging were consistent with the above diagnosis. Risks, benefits, and alternatives of surgery were explained in detail. The patient understood all this and wished to proceed. Description of Procedure Components Implanted: Tornier Reverse Total Shoulder implants Perform glenoid baseplate: 25mm, 15 degree full wedge with 6.5mm central screw and 5.0mm peripheral screws x 4 Glenosphere: 36mm standard Ascend Flex humeral stem: 2B Standard length (70mm) Humeral tray: 3.5 mm offset, +0mm thickness Polyethylene insert: 36mm, +6mm thickness Patient was identified in the preoperative holding area. Operative extremity was marked. Regional blockade was given by the Anesthesia Staff. Patient was then brought back to the operating room, and general anesthesia was induced without complication. Appropriate weight-based dose of Ancef was infused intravenously for antibiotic prophylaxis. The patient was then placed in the beachchair position. Left arm was then prepped and draped in a standard sterile fashion using Chlorhexidine prep. A standard deltopectoral incision was made through the skin and subcutaneous tissue. The cephalic vein was identified and retracted medially. Small branches to the deltoid were coagulated as necessary. The clavipectoral fascia was then incised and the subdeltoid space was opened. The rotator cuff was found to be deficient, and I therefore decided to perform a reverse total shoulder arthroplasty as planned preoperatively. The biceps tendon was identified within the bicipital groove and tenodesed at the superior border of the pectoralis tendon with #2 FiberWire suture. The biceps tendon was then divided proximal to the tenodesis site and the rotator interval was opened. The proximal portion of the biceps tendon was excised. The remaining subscapularis tendon was elevated subperiosteally off of the lesser tuberosity. The glenohumeral joint was then dislocated, and large osteophytes were debrided with a ronguer. The intramedullary canal of the humerus was then opened with a canal finder. The humeral head cut was then made in the appropriate inclination and version using the cutting guide. The humeral canal was then sequentially broached to the appropriate size. A protective cap was then placed on top of the humeral trial. I then turned my attention to the glenoid. The proximal stump of the biceps tendon was excised, along with the labrum circumferentially around the glenoid. The Blueprint drill guide was then positioned on the glenoid, and the guidepin was then inserted. The 15 degree angled reamer was then inserted over the guidepin and an reamed to an appropriate depth. The central screw hole was drilled, and appropriate length 6.5mm central screw was selected. The baseplate was then implanted into place according to our preoperative Blueprint plan by tightening down the central screw. A peripheral 5mm nonlocking screw was placed posteriorly first for additional compression of the baseplate, and then additional locking 5 mm peripheral screws were placed to complete fixation of the baseplate. Glenosphere was then impacted and secured. A trial humeral tray and insert were placed on the trial humeral stem, and a trial reduction was carried out. Once I achieved acceptable joint stability and range of motion with the trial implants, the final humeral implants were assembled on the back table and then impacted into position. I then took the shoulder through full range of motion to ensure good stability and acceptable motion. Wound was then copiously irrigated with sterile saline. Deep fascia was closed with 0 V-lock suture. Subcutaneous tissue was closed with 2-0 V-lock, and skin was closed with 3-0 V-lock. Skin was then sealed with Dermabond. Sterile dressings were then applied with a waterproof silver-impregnated dressing, and the arm was placed into a sling. The patient was awakened from anesthesia and taken to the Post Anesthesia Care Unit in stable condition. There were no immediate complications from the procedure. I was present and scrubbed for the entire procedure, with the exception of final skin closure and dressing application. Due to the complex nature of the procedure, the entire surgery was performed with the operational assistance of Jaziel Bhat PA-C. The product development assistant, under direct supervision, was involved in the performance of all aspects of the surgical procedure including hemostasis, tissue incision and retraction, instrument management, patient positioning, and wound closure. I attest to the content of the Intraoperative Record and any orders documented therein. Any exceptions are noted below.
[2022-11-04] MEDS ORDERED: LABETALOL HCL IV 5 MG/ML 20ML IV STA (11:53)
[2022-11-04] MEDS ORDERED: LABETALOL HCL IV 5 MG/ML 20ML IV ONE (11:55)
--- NOTE | 2022-11-04 11:56 | XRay Report ---
XR shoulder LT min 2V routine HISTORY: 76 years-old Female Post shoulder surgery left shoulder arthroplasty COMPARISON: Chest radiograph 10/09/2022 TECHNIQUE: 2 views of the left shoulder FINDINGS: Reverse total joint arthroplasty demonstrates satisfactory alignment. No acute fracture. Expected pos toperative soft tissue swelling with deep tissue air. Demineralized appearance of the bones. Moderate degeneration of the AC joint. IMPRESSION: Reverse total joint arthroplasty with expected postoperative changes. ACT 112: Negative or not required by law. The above report was generated using voice recognition software. It may contain grammatical, syntax o r spelling errors. Electronically signed by: Armand Leon M.D. 11/04/2022 11:55 AM
--- NOTE | 2022-11-04 12:59 | Anesthesiology Progress Note ---
Date of Service November 04, 2022 Anesthesia Post Procedure Vital Signs Vital Signs: Temp Pulse Pulse Resp BP Pulse Ox O2 Del Method 11/04/22 12:50 76 18 170/76 H 94 Room Air 11/04/22 12:40 76 16 169/81 H 94 Room Air 11/04/22 12:30 71 16 165/80 H 95 Room Air 11/04/22 12:25 97.5 F L 75 18 169/87 H 94 Room Air 11/04/22 12:05 70 16 167/81 H 94 Room Air 11/04/22 12:15 72 18 167/75 H 95 Room Air 11/04/22 11:55 80 16 191/85 H 94 Room Air 11/04/22 11:45 82 16 171/102 H 96 Oxymask 11/04/22 11:35 81 14 186/85 H 96 Oxymask 11/04/22 11:28 96.8 F L 87 14 218/125 H 96 Oxymask 11/04/22 07:35 97.9 F 80 18 152/81 H 97 Room Air O2 Flow Rate 11/04/22 12:50 11/04/22 12:40 11/04/22 12:30 11/04/22 12:25 11/04/22 12:05 11/04/22 12:15 11/04/22 11:55 11/04/22 11:45 6 11/04/22 11:35 6 11/04/22 11:28 6 11/04/22 07:35 Pain Intensity Left Shoulder: Pain Intensity: 7 Transfer of Care Handoff Completed per policy Notes Mental Status: alert / awake / arousable and participated in evaluation Patient Amnestic to Procedure: Yes Nausea / Vomiting: adequately controlled Pain: adequately controlled Airway Patency, RR, SpO2: stable & adequate BP & HR: stable & adequate Hydration State: stable & adequate Anesthetic Complications: no major complications apparent and Pt Satisfied with anesthetic care
[2022-11-04] MEDS ORDERED: METOCLOPRAMIDE HCL INJ 5 MG/ML 2 ML VIAL IV PRN (13:09)
[2022-11-04] MEDS ORDERED: PHARMACY GLYCEMIC MGMT CONSULT PRN (13:09)
[2022-11-04] MEDS ORDERED: oxyCODONE HCL IR 5 MG TAB (IMMEDIATE RELEASE) PO PRN (13:09)
[2022-11-04] MEDS ORDERED: NITROGLYCERIN SL 0.4 MG/TAB TAB SL PRN (13:09)
[2022-11-04] MEDS ORDERED: bisacodyL 10 MG SUPP PR PRN (13:09)
[2022-11-04] MEDS ORDERED: NALOXONE HCL 0.4 MG/1 ML VIAL/CARP IV PRN (13:09)
[2022-11-04] MEDS ORDERED: MAGNESIUM HYDROXIDE SUSP 30 ML UDC PO PRN (13:09)
[2022-11-04] MEDS ORDERED: CARBOHYDRATES FOR HYPOGLYCEMIA PO PRN (13:30)
[2022-11-04] MEDS ORDERED: GLUCOSE 40% GEL 15 GM TUBE PO PRN (13:30)
[2022-11-04] MEDS ORDERED: GLUCOSE 10 TAB/TUBE PO PRN (13:30)
[2022-11-04] MEDS ORDERED: GLUCAGON FOR INJ 1 MG VIAL IM PRN (13:30)
[2022-11-04] MEDS ORDERED: DEXTROSE 50% 50 ML SYRINGE IV PRN (13:30)
[2022-11-04] MEDS: SODIUM CHLORIDE 0.9% 1000ML 1,000 ML IV SCH ×2 (13:35→23:37)
[2022-11-04] MEDS: IBUPROFEN 600 MG TAB PO SCH ×2 (16:27→21:14)
[2022-11-04] MEDS ORDERED: LANTUS PER UNIT CHARGE SC SCH (16:30)
--- NOTE | 2022-11-04 16:48 | Consultation ---
Date of Consultation November 04, 2022 Assessment & Plan (1) Essential hypertension: Blood pressure 167/89 Patient on Diovan at home was 160 mg twice daily We will resume Continue monitor blood pressure closely (2) Diabetes mellitus: Patient states she was diagnosed only with prediabetes Blood glucose currently under good control If necessary, insulin sliding scale (3) CAD (coronary artery disease): Patient has had the stent. Initially on Plavix and aspirin Currently on aspirin alone. (4) Primary osteoarthritis, left shoulder: Status post left reverse total shoulder arthroplasty. Rest of management per orthopedics History of Present Illness Requesting Physician: Dr Garcia Reason for Consultation: medical mgt Attending Physician: Kyle Garcia History of Present Illness This 76-year-old female with a history of CAD, status post stent, hypertension, prediabetes, who was admitted to the hospital for an elective left reverse total shoulder arthroplasty. Internal medicine was consulted for medical management. According to the patient, she has a history of hypertension which is under good control with Diovan 160 mg twice daily. She also states she has had a stent put in and was initially on Plavix and aspirin but currently only on aspirin. She states she has prediabetes and her blood glucose under good control. Today postsurgery, vital signs are stable however blood pressure was elevated 167/89. Pulse 84 respiratory rate 16 and saturating well on room air. Allergies Allergy/AdvReac Type Severity Reaction Status Date / Time MOLLY Inhibitors Allergy Unknown Cough Verified 11/04/22 08:10 azithromycin [From Zithromax] Allergy Unknown Unknown Verified 11/04/22 08:10 doxycycline Allergy Unknown Nausea Verified 11/04/22 08:10 nitroglycerin Allergy Unknown Headache Verified 11/04/22 08:10 [From Nitro-Bid] Sulfa (Sulfonamide Allergy Unknown Rash Verified 11/04/22 08:10 Antibiotics) morphine AdvReac Mild NAUSEA Verified 11/04/22 08:10 adhesive AdvReac Unknown RASH WITH Verified 11/04/22 08:10 PROLONGED WEAR Home Medications Medication Instructions Recorded Confirmed Type aspirin 81 mg tablet 81 mg PO QAM #30 tabs 01/28/19 11/04/22 History cholecalciferol (vitamin D3) 50 50 mcg PO DAILY #30 caps 10/09/19 11/04/22 Rx mcg (2,000 unit) capsule lovastatin 40 mg tablet 40 mg PO PM #90 tabs 01/14/22 11/04/22 Rx nitroglycerin 0.4 mg sublingual 0.4 mg sublingual UD PRN chest 01/14/22 11/04/22 Rx tablet pain #25 tabs omeprazole 20 mg tablet,delayed 20 mg PO BID #180 tabs 01/14/22 11/04/22 Rx release metformin 500 mg tablet 250 mg PO BID #180 tabs 02/12/22 11/04/22 Rx Wheeled Walker #1 ea 05/10/22 10/20/22 Rx blood sugar diagnostic (OneTouch #100 ea 05/10/22 10/20/22 Rx Ultra Test strips) ferrous sulfate 325 mg (65 mg 325 mg PO DAILY #90 tabs 06/11/22 11/04/22 Rx iron) tablet,delayed release potassium chloride 20 mEq 20 meq PO BID #180 tabs 06/11/22 11/04/22 Rx tablet,extended release gabapentin 600 mg tablet 600 mg PO HS #90 tabs 07/30/22 11/04/22 Rx temazepam 15 mg capsule 15 mg PO HS PRN Sleep #30 caps 07/30/22 11/04/22 Rx valsartan 320 mg tablet (Diovan) 320 mg PO DAILY #90 tabs 09/08/22 11/04/22 Rx biotin 5 mg tablet 5 mg PO QAM 10/04/22 11/04/22 History tramadol 50 mg tablet 50 mg PO Q8H PRN pain #30 tabs 10/07/22 10/20/22 Rx Patient History Medical History Asthma has not used inhaler in >1.5 yrs 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 Benson History of hysterectomy Hx of colonoscopy S/P cardiac catheterization (08/13/19) Angiographically mild to moderate 2 vessel occlusive coronary disease, patent stents in LAD. Mild reduced left ventricular systolic function. Normal LVEDP S/P carpal tunnel release S/P coronary artery stent placement (11/2014) x 2- [facility] Priscila sabrina w/ Dr Miquel Sweeney last visit ?2021 S/P tonsillectomy and adenoidectomy Family History Mother Myocardial infarction Hypertension Father Sister Colorectal cancer Sister , age 78 Myocardial infarction Coronary heart disease Son Myocardial infarction, Onset Age: 52 Other Adverse anesthesia outcome Denies family history of Ovarian cancer Prostate cancer Breast cancer Lung cancer Stroke Social History Smoking Status: Never smoker Second Hand Exposure: No; Do You Dip or Chew Tobacco: No; Tobacco Cessation Education Requested by Patient: No Hx Alcohol Use: No Hx Substance Use: No Preferred Language: [place] Communication Ability: Effective Visual Impairment: No Limitations Hearing Ability: Normal Recruiting Specialist Required: No Beliefs That Will Affect Care: None marital status: Current Living Situation: Alone current occupational status: retired How many Children do You have: 2 Other Information That Helps Us Care for You: No Feels Safe at Home: Yes Safety Concerns: Feels Safe At This Time Childhood Exposure to Second-Hand Smoke: No Diet: regular Diet Comment: Regular caffeine: Yes (tea) during the past year weight has: remained stable Dental Care, Regularly: Yes Physical Activity Frequency: 1-2 Times per Week Seatbelt Use: always Sunscreen Use: No Assistive Devices: Denture - Lower Assistive Devices Comment: partials Review of Systems Review of Systems: All systems reviewed are negative, apart from the ones contained in the history. Physical Exam Physical Exam: The patient is awake, alert and oriented 3, well developed and well nourished, normocephalic and atraumatic, lying in bed and in no acute distress. HEENT--PERRL, EOMI, mucous membranes and oropharynx mildly dry Neck--supple. No JVD. No bruits. Thyroid normal, trachea midline, no adenopathy. Heart--normal S1 and S2. No murmurs, rubs or gallops. Lungs--clear bilaterally, no respiratory distress, no accessory muscle use. Abdomen--normal bowel sounds and soft. Mild epigastric and left sided abdominal pain Extremities--no cyanosis or clubbing. No edema. Left shoulder in sling Dermatologic--normal skin turgor, normal color, no abnormal lymph nodes, no rash. Neurologic--cranial nerves II through XII grossly intact. Rheumatologic--normal range of motion. Psychiatric--normal affect. Results & Data Vital Signs (Past 12 Hours) Vital Signs Temp Pulse Pulse Pulse Resp BP Pulse Ox 11/04/22 16:10 97.5 F L 84 16 167/89 H 94 11/04/22 15:10 97.9 F 85 16 153/107 H 95 11/04/22 14:10 97.5 F L 82 16 175/113 H 94 11/04/22 13:41 97.7 F 70 18 177/90 H 94 11/04/22 13:10 97.5 F L 79 18 159/83 H 95 11/04/22 13:00 75 16 163/93 H 94 11/04/22 12:50 76 18 170/76 H 94 11/04/22 12:40 76 16 169/81 H 94 11/04/22 12:30 71 16 165/80 H 95 11/04/22 12:25 97.5 F L 75 18 169/87 H 94 11/04/22 12:05 70 16 167/81 H 94 11/04/22 12:15 72 18 167/75 H 95 11/04/22 11:55 80 16 191/85 H 94 11/04/22 11:45 82 16 171/102 H 96 11/04/22 11:35 81 14 186/85 H 96 11/04/22 11:28 96.8 F L 87 14 218/125 H 96 11/04/22 07:35 97.9 F 80 18 152/81 H 97 O2 Del Method O2 Flow Rate 11/04/22 16:10 Room Air 11/04/22 15:10 Room Air 11/04/22 14:10 Room Air 11/04/22 13:41 Room Air 11/04/22 13:10 Room Air 11/04/22 13:00 Room Air 11/04/22 12:50 Room Air 11/04/22 12:40 Room Air 11/04/22 12:30 Room Air 11/04/22 12:25 Room Air 11/04/22 12:05 Room Air 11/04/22 12:15 Room Air 11/04/22 11:55 Room Air 11/04/22 11:45 Oxymask 6 11/04/22 11:35 Oxymask 6 11/04/22 11:28 Oxymask 6 11/04/22 07:35 Room Air
[2022-11-04] MEDS: INSULIN ASPART PER UNIT CHARGE SC SCH ×2 (17:50→21:18)
[2022-11-04] MEDS: ceFAZolin 2000MG 2,000 MG/15 ML SYR IV SCH (17:54)
[2022-11-04] MEDS: ACETAMINOPHEN 500 MG TAB PO SCH ×2 (17:57→21:15)
[2022-11-04] MEDS ORDERED: LOVASTATIN 20 MG TAB PO SCH (21:00)
[2022-11-04] MEDS ORDERED: GABAPENTIN 600 MG TAB PO SCH (21:00)
[2022-11-04] MEDS ORDERED: SENNA 8.6 MG TAB PO SCH (21:00)
[2022-11-04] MEDS: DOCUSATE SODIUM 100 MG CAP PO SCH (21:10)
[2022-11-04] MEDS: POTASSIUM CHLORIDE CRTAB 20 MEQ TABCR PO SCH (21:14)
[2022-11-04] MEDS: VALSARTAN 80 MG TAB PO SCH (21:14)
[2022-11-04] MEDS: PANTOprazole 40 MG TAB PO SCH (21:14)
[2022-11-05] MEDS: ceFAZolin 2000MG 2,000 MG/15 ML SYR IV SCH (02:09)
[2022-11-05] MEDS: IBUPROFEN 600 MG TAB PO SCH ×2 (02:09→08:36)
[2022-11-05] MEDS ORDERED: TEMAZEPAM 7.5 MG CAPSULE PO ONE (03:23)
[2022-11-05] MEDS: ACETAMINOPHEN 500 MG TAB PO SCH (05:38)
[2022-11-05 06:47] LABS: Basophils # (auto) 0.02 K/uL (0-0.2); Basophils % (auto) 0.1 %; Hematocrit (blood only) 35.7 % (37.0-47.0); Hemoglobin 12.1 g/dl (12.0-16.0); Immature Granulocytes # (auto) 0.07 K/uL (0.01-0.20); Immature Granulocytes % (auto) 0.5 %; Lymphocytes # (auto) 1.72 K/uL (1.2-3.4); Lymphocytes % (auto) 11.4 %; Mean Corpuscular Hemoglobin 29.7 pg (25.0-34.0); Mean Corpuscular Hgb Conc 33.9 g/dL (32.0-36.0); Mean Corpuscular Volume 87.5 fL (80.0-100.0); Mean Platelet Volume 9.6 fL (9.4-12.4); Monocytes # (auto) 1.02 K/uL (0.11-0.59); Monocytes % (auto) 6.7 %; Neutrophils % (auto) 81.3 %; Platelet Count 341 K/uL (130-400); RDW Coefficient of Variation 13.2 % (11.5-14.5); RDW Standard Deviation 42.4 fL (36.4-46.3); Red Blood Count 4.08 M/uL (4.20-5.40); White Blood Count 15.13 K/ul (4.8-10.8)
[2022-11-05 06:56] LABS: BUN Creatinine Ratio 14.5 (10-20); Calcium 9.1 mg/dl (8.6-10.3); Creatinine Clr Calc Pharmacy 67.1 ml/min; Est GFR (African American) 98.7 ml/min; Est GFR (Non-African American) 85.2 ml/min; Potassium 3.9 mmol/L (3.5-5.1)
--- NOTE | 2022-11-05 07:55 | Orthopedic Progress Note ---
Date of Service November 05, 2022 Assessment & Plan (1) Status post reverse arthroplasty of left shoulder: Plan: 76 yo female stable POD #1 s/p reverse left TSA 1. Med managemen consult for postop HTN 2. DVT prophylaxis- ASA, SCDs 3. PT/OT 4. D/C planning- home w/ HH Admission and Anticipated Discharge Date Admission Date: November 04, 2022 Subjective Pt resting in chair, looks well, denies complaints Physical Exam Physical Exam: Silverlon dressing in place, shoulder immobilizer in place, fingers mobile, "thumb and index finger feel a little funny" Results & Data Vital Signs (Past 12 Hours) Vital Signs Temp Pulse Resp BP Pulse Ox O2 Del Method 11/05/22 06:41 36.4 C L 87 16 162/83 H 94 Room Air 11/05/22 02:37 36.4 C L 87 16 159/82 H 95 Room Air 11/04/22 21:15 Room Air 11/04/22 22:19 36.3 C L 92 H 16 153/80 H 95 Room Air Laboratory Results 11/05/22 11/05/22 11/05/22 Range/Units 06:43 06:16 06:16 WBC 15.13 H (4.8-10.8) K/ul RBC 4.08 L (4.20-5.40) M/uL Hgb 12.1 (12.0-16.0) g/dl Hct 35.7 L (37.0-47.0) % MCV 87.5 (80.0-100.0) fL MCH 29.7 (25.0-34.0) pg MCHC 33.9 (32.0-36.0) g/dL RDW Std Deviation 42.4 (36.4-46.3) fL RDW Coeff of Chaim 13.2 (11.5-14.5) % Plt Count 341 (130-400) K/uL MPV 9.6 (9.4-12.4) fL Immature Gran % (Auto) 0.5 % Neut % (Auto) 81.3 % Lymph % (Auto) 11.4 % Moca % (Auto) 6.7 % Eos % (Auto) 0.0 % Baso % (Auto) 0.1 % Neut # (Auto) 12.30 H (1.40-6.50) K/uL Lymph # (Auto) 1.72 (1.2-3.4) K/uL Moca # (Auto) 1.02 H (0.11-0.59) K/uL Eos # (Auto) 0.00 (0-0.50) K/uL Baso # (Auto) 0.02 (0-0.2) K/uL Immature Gran # (Auto) 0.07 (0.01-0.20) K/uL Sodium 139 (136-145) mmol/L Potassium 3.9 (3.5-5.1) mmol/L Chloride 107 (98-107) mmol/L Carbon Dioxide 25 (21-32) mmol/L Anion Gap 7 (3-11) BUN 10 (6-23) mg/dl Creatinine 0.69 (0.6-1.2) mg/dl Est Cr Clr Drug Dosing 67.1 ml/min Est GFR ( Amer) 98.7 ml/min Est GFR (Non-Af Amer) 85.2 ml/min BUN/Creatinine Ratio 14.5 (10-20) Glucose 126 H (70-99(Fasting)) mg/dl POC Glucose 118 H (70-99) mg/dl Calcium 9.1 (8.6-10.3) mg/dl SARS-CoV-2, RNA, NAAT (NEGATIVE) 11/04/22 11/04/22 11/04/22 Range/Units Unknown 20:40 16:48 WBC (4.8-10.8) K/ul RBC (4.20-5.40) M/uL Hgb (12.0-16.0) g/dl Hct (37.0-47.0) % MCV (80.0-100.0) fL MCH (25.0-34.0) pg MCHC (32.0-36.0) g/dL RDW Std Deviation (36.4-46.3) fL RDW Coeff of Chaim (11.5-14.5) % Plt Count (130-400) K/uL MPV (9.4-12.4) fL Immature Gran % (Auto) % Neut % (Auto) % Lymph % (Auto) % Moca % (Auto) % Eos % (Auto) % Baso % (Auto) % Neut # (Auto) (1.40-6.50) K/uL Lymph # (Auto) (1.2-3.4) K/uL Moca # (Auto) (0.11-0.59) K/uL Eos # (Auto) (0-0.50) K/uL Baso # (Auto) (0-0.2) K/uL Immature Gran # (Auto) (0.01-0.20) K/uL Sodium (136-145) mmol/L Potassium (3.5-5.1) mmol/L Chloride (98-107) mmol/L Carbon Dioxide (21-32) mmol/L Anion Gap (3-11) BUN (6-23) mg/dl Creatinine (0.6-1.2) mg/dl Est Cr Clr Drug Dosing ml/min Est GFR ( Amer) ml/min Est GFR (Non-Af Amer) ml/min BUN/Creatinine Ratio (10-20) Glucose (70-99(Fasting)) mg/dl POC Glucose 231 H 173 H (70-99) mg/dl Calcium (8.6-10.3) mg/dl SARS-CoV-2, RNA, NAAT NEGATIVE (NEGATIVE) 11/04/22 11/04/22 Range/Units 12:04 08:06 WBC (4.8-10.8) K/ul RBC (4.20-5.40) M/uL Hgb (12.0-16.0) g/dl Hct (37.0-47.0) % MCV (80.0-100.0) fL MCH (25.0-34.0) pg MCHC (32.0-36.0) g/dL RDW Std Deviation (36.4-46.3) fL RDW Coeff of Chaim (11.5-14.5) % Plt Count (130-400) K/uL MPV (9.4-12.4) fL Immature Gran % (Auto) % Neut % (Auto) % Lymph % (Auto) % Moca % (Auto) % Eos % (Auto) % Baso % (Auto) % Neut # (Auto) (1.40-6.50) K/uL Lymph # (Auto) (1.2-3.4) K/uL Moca # (Auto) (0.11-0.59) K/uL Eos # (Auto) (0-0.50) K/uL Baso # (Auto) (0-0.2) K/uL Immature Gran # (Auto) (0.01-0.20) K/uL Sodium (136-145) mmol/L Potassium (3.5-5.1) mmol/L Chloride (98-107) mmol/L Carbon Dioxide (21-32) mmol/L Anion Gap (3-11) BUN (6-23) mg/dl Creatinine (0.6-1.2) mg/dl Est Cr Clr Drug Dosing ml/min Est GFR ( Amer) ml/min Est GFR (Non-Af Amer) ml/min BUN/Creatinine Ratio (10-20) Glucose (70-99(Fasting)) mg/dl POC Glucose 169 H 104 H (70-99) mg/dl Calcium (8.6-10.3) mg/dl SARS-CoV-2, RNA, NAAT (NEGATIVE)
[2022-11-05] MEDS: INSULIN ASPART PER UNIT CHARGE SC SCH (08:23)
[2022-11-05] MEDS: VALSARTAN 80 MG TAB PO SCH (08:29)
[2022-11-05] MEDS: PANTOprazole 40 MG TAB PO SCH (08:31)
[2022-11-05] MEDS: POTASSIUM CHLORIDE CRTAB 20 MEQ TABCR PO SCH (08:31)
[2022-11-05] MEDS: DOCUSATE SODIUM 100 MG CAP PO SCH (08:32)
[2022-11-05] MEDS ORDERED: ASPIRIN 325 MG ECTAB PO SCH (09:00)
[2022-11-05] MEDS ORDERED: NON-FORMULARY MEDICATION (Biotin 5 mg Tablet) PO SCH (09:00)
[2022-11-05] MEDS ORDERED: CHOLECALCIFEROL 1,000 UNITS 25 MCG TAB PO SCH (09:00)
[2022-11-05] MEDS ORDERED: MULTIVITAMIN TAB PO SCH (09:00)
[2022-11-05] MEDS ORDERED: FERROUS SULFATE 325 MG TAB PO SCH (09:00)
[2022-11-05] MEDS ORDERED: VALSARTAN 80 MG TAB PO SCH (09:00)
--- NOTE | 2022-11-05 14:53 | Hospitalist Progress Note ---
Date of Service November 05, 2022 Assessment & Plan (1) Essential hypertension: Plan: Blood pressure 162/83 Patient on Diovan at home was 160 mg twice daily We will continue, add Amlodipine 5mg daily Continue monitor blood pressure closely (2) Diabetes mellitus: Plan: Patient states she was diagnosed only with prediabetes Blood glucose currently under good control If necessary, insulin sliding scale (3) CAD (coronary artery disease): Plan: Patient has had the stent. Initially on Plavix and aspirin Currently on aspirin alone. (4) Primary osteoarthritis, left shoulder: Plan: Status post left reverse total shoulder arthroplasty. Rest of management per orthopedics Admission and Anticipated Discharge Date Admission Date: November 04, 2022 Subjective patient seen and examined, participating in PT Review of Systems Review of Systems: All systems reviewed are negative, apart from the ones contained in the history. Physical Exam Physical Exam: The patient is awake, alert and oriented 3, well developed and well nourished, normocephalic and atraumatic, lying in bed and in no acute distress. HEENT--PERRL, EOMI, mucous membranes and oropharynx mildly dry Neck--supple. No JVD. No bruits. Thyroid normal, trachea midline, no adenopathy. Heart--normal S1 and S2. No murmurs, rubs or gallops. Lungs--clear bilaterally, no respiratory distress, no accessory muscle use. Abdomen--normal bowel sounds and soft. Mild epigastric and left sided abdominal pain Extremities--no cyanosis or clubbing. No edema. Left shoulder in sling Dermatologic--normal skin turgor, normal color, no abnormal lymph nodes, no rash. Neurologic--cranial nerves II through XII grossly intact. Rheumatologic--normal range of motion. Psychiatric--normal affect. Results & Data Results & Data Vital Signs (Past 12 Hours) Vital Signs Temp Pulse Pulse Resp BP Pulse Ox O2 Del Method 11/05/22 10:17 97.5 F L 70 87 16 162/83 H 94 11/05/22 06:41 97.5 F L 87 16 162/83 H 94 Room Air PG Care Time/CCT Total # of Minutes Spent Total Time Spent with Patient: Total time spent is greater than 50% in coordination of care (as documented) at patient's floor/unit and/or counseling patient: Coding Level of Care Code 98254 SUB INP/OBS CARE 2/35MIN Diagnoses Essential hypertension I10 Diabetes mellitus E11.9 CAD (coronary artery disease) I25.10 Primary osteoarthritis, left shoulder M19.012 Time Spent (min) 35
[2022-11-05] MEDS ORDERED: amLODIPine BESYLATE 5 MG TAB PO ONE (15:00)
[2022-11-06] MEDS ORDERED: amLODIPine BESYLATE 5 MG TAB PO SCH (09:00)
--- NOTE | 2022-11-09 17:31 | Discharge Summary ---
Date of Service November 09, 2022 Admission HPI Per Admitting Provider Ms. Almazan is a 76-year-old [id number] female referred over from Dr. Whittington's team for bilateral shoulder pain, left greater than right. It has been going on for at least 3 years with gradual progressive worsening. She has received bilateral shoulder injections for many years, the last one on her left side in May 2022. She has been getting decreasing efficacy from these injections over time. She most recently had another steroid injection on her right shoulder in August, but not her left since she is interested in shoulder replacement surgery on that side. She did have acute worsening of her pain when she pulled herself out of bed earlier this year. Of note, she has a history of coronary artery disease and has a single stent that was placed about 3 years ago. She is on aspirin 81 mg daily, but no other anticoagulants. She denies history of myocardial infarction. She will also has diabetes and is on metformin. She also has hypertension and hyperlipidemia. Principal Diagnosis Left shoulder osteoarthritis with rotator cuff tear Discharge Data Allergies Allergy/AdvReac Type Severity Reaction Status Date / Time MOLLY Inhibitors Allergy Unknown Cough Verified 11/04/22 08:10 azithromycin [From Zithromax] Allergy Unknown Unknown Verified 11/04/22 08:10 doxycycline Allergy Unknown Nausea Verified 11/04/22 08:10 nitroglycerin Allergy Unknown Headache Verified 11/04/22 08:10 [From Nitro-Bid] Sulfa (Sulfonamide Allergy Unknown Rash Verified 11/04/22 08:10 Antibiotics) morphine AdvReac Mild NAUSEA Verified 11/04/22 08:10 adhesive AdvReac Unknown RASH WITH Verified 11/04/22 08:10 PROLONGED WEAR Consultations 11/04/22 16:12 Consult Hospitalist Routine Procedures Performed Operation Date: 11/04/22 09:30 Actual Procedures p Left Reverse Total Shoulder Arthroplasty(Left) - Kyle Garcia M.D. Ordered Studies 11/04/22 05:00 US - OR guided needle placemen Routine Hospital Course (1) Primary osteoarthritis, left shoulder: Patient underwent a left reverse total shoulder arthroplasty, and was admitted under the orthopedic surgery service postoperatively. Patient tolerated the procedure well and was transferred up to the orthopedic surgery floor in stable condition. Perioperative antibiotic coverage was initiated for 24 hours. DVT prophylaxis consisting of aspirin 325 mg daily was started the morning after surgery. On postoperative day 1, pain was well controlled with oral medications only. Patient was ambulating without assistance, tolerating a regular diet, and was therefore determined to be safe and ready for discharge to home. Total Time Total Time Spent Total Time Spent (In Minutes): 15 Discharge Plan Discharge Items Patient Disposition: Home - Home Health Services Reason For Visit: Left Shoulder Rotator Cuff Tear Arthroplasty Discharge Diagnosis: Left shoulder osteoarthritis with rotator cuff tear Activity: Per Instructions section Non-emergency contact: Surgeon Call non-emergency contact if: your pain is not controlled, your temperature is above 101.5, your wound has increased redness and your wound has increased drainage Follow-up/Referrals: Leatha Perez DO [Primary Care Provider] - Kyle Garcia M.D. [Physician] - Diet: Carb Consistent or DM2 Addtl Attending Provider Instructions: Things to Watch Out For -Go to the Emergency Room if you have sudden onset of nausea, vomiting, chest pain, shortness of breath, or uncontrollable pain. -Call the clinic or go to the Emergency Room if you have a sudden increase in the amount of wound drainage or the drainage becomes thick, yellow or green, or foul-smelling. -For routine questions, call the clinic at [phone] during regular business hours (8am-5pm). For urgent issues after regular business hours, you may call the clinic to be connected to the on-call physician. Dressings -A special waterproof, silver-impregnated dressing was placed on your shoulder. Keep this dressing in place for 1 week after surgery. You may shower with the waterproof dressing in place, but do not soak the dressing in the bathtub or pool. -One week after surgery, you may remove the waterproof dressing. You may continue to shower, and let water run BRIEFLY over the incision, but do not soak the incision in the bathtub or pool for 2 weeks. You may also gently clean the incision with mild soap and water; pat the incision dry after cleaning-do not rub the incision. Apply a new dressing daily thereafter. Shoulder Exercises -Keep your operative shoulder in the sling for comfort, except as detailed below. -You should come out of the sling 4-5 times a day for passive pendulum exercises: lean over and swing your arm in a circular pattern. -You should also do active-assisted forward flexion exercises: use your opposite hand to lift your operative arm forward to 90 degrees. -Do not flex your elbow (curl motion) or supinate your forearm (rotating palm up) against resistance. -Do not use your arm to push yourself up out of bed or up from a seated position. Ice Pack -You may use an ice pack for pain relief. You should use it 20-30 minutes at a time. Place a towel between the ice pack and your skin to prevent frostbite. -You should use the ice pack fairly regularly for the first 1-2 weeks after surgery to help reduce pain and inflammation. -About 2 weeks after your surgery, you should start using heat to loosen up your shoulder prior to doing your stretching exercises, then use the cooling sleeve after your exercises are complete to reduce swelling and pain. Pain Medicines -Your prescriptions for pain medications have already been sent to the pharmacy on file at [facility]. -You have been prescribed an anti-inflammatory (Motrin/ibuprofen) and a non- narcotic pain medicine (Tylenol/acetaminophen). These are your primary pain medications. Take them each every 6 hours as instructed. It is recommended that you stagger these medicines every 3 hours (i.e. take ibuprofen at 8:00 am, then acetaminophen at 11:00 am, then ibuprofen at 2:00 pm, etc) -DO NOT take any additional anti-inflammatories (Advil, Aleve/naproxen, Mobic/meloxicam, Celebrex) or any additional Tylenol/acetaminophen products with these prescribed medications. -You have also been prescribed an additional narcotic pain medication (oxyc odone). Take this medicine ONLY for breakthrough pain not controlled by the ibuprofen and acetaminophen. -Do not drive or operate heavy machinery while taking the narcotic medication. -Common side effects of narcotic pain medicines include itching, nausea, constipation, and feeling "loopy". However, if you develop a rash or hives, stop taking the medicine and call the clinic. If you develop swelling in your throat or difficulty breathing, go to the Emergency Room or call 911 IMMEDIATELY. -You may take over the counter stool softeners if needed for constipation. Aspirin -Take a full strength (325mg) aspirin every day for 4 weeks (28 days) to prevent blood clots. -If you were taking a baby aspirin (81mg) prior to surgery, you may resume taking this 81mg dose after you complete the 28-day course of the 325mg strength dose; do not take the 325mg dose in addition to your 81mg dose. -Be aware that you will bruise easier while taking Aspirin; this is normal. However, if you develop a significantly large area of swelling after an injury, or have a cut that will not stop bleeding, call the clinic or go to the Emergency Room immediately. Pending Studies at Discharge: No Stand-Alone Forms: [facility], Smoking Cessation Medications and DC Order Prescriptions: Continued cholecalciferol (vitamin D3) 50 mcg (2,000 unit) capsule 50 mcg PO DAILY Qty: 30 0RF metformin 500 mg tablet 250 mg PO BID Qty: 180 1RF temazepam 15 mg capsule 15 mg PO HS PRN (Reason: Sleep) Qty: 30 3RF gabapentin 600 mg tablet 600 mg PO HS Qty: 90 3RF valsartan [Diovan] 320 mg tablet 320 mg PO DAILY Qty: 90 2RF Rx Instructions: Takes 1/2 in AM, 1/2 in PM (DME) Wheeled Walker See Rx Instructions .Route .MEDSUPPLY Qty: 1 0RF Rx Instructions: As directed (DME) OneTouch Ultra Test Strip See Rx Instructions .Route Qty: 100 1RF Rx Instructions: As directed; once daily lovastatin 40 mg tablet 40 mg PO PM Qty: 90 3RF omeprazole 20 mg tablet,delayed release (DR/EC) 20 mg PO BID Qty: 180 3RF nitroglycerin 0.4 mg tablet, sublingual 0.4 mg SL UD PRN (Reason: chest pain) Qty: 25 0RF ferrous sulfate 325 mg (65 mg iron) tablet,delayed release (DR/EC) 325 mg PO DAILY Qty: 90 3RF potassium chloride 20 mEq tablet extended release 20 meq PO BID Qty: 180 2RF biotin 5 mg Tablet 5 mg PO QAM Held aspirin 81 mg tablet 81 mg PO QAM Qty: 30 Hold Instructions: Resume on 12/02/22. Take prescribed 325mg dose of aspirin for 28 days (4 weeks), then resume your normal 81mg dose. Discontinued tramadol 50 mg tablet 50 mg PO Q8H PRN (Reason: pain) Qty: 30 0RF Krames/Other Patient Handouts: Osteoarthritis Admission Data Admit Date/Time: 11/04/22 11:33 Attending Provider: Kyle Garcia Admit Provider: Kyle Garcia Primary Care Provider: Leatha Perez Other Providers: Regan Capellan Other Interventions: Discharge Summary Assessment (RN) Last Done: 11/05/22 10:17
== END 2022-11-05 10:54 | disposition home health service (06) ==
LOC: ASU 07:26 → 3E 11:33 → INTOOBSV 11:33

== ENCOUNTER 2024-07-03 05:07 | Observation (INO) ==
--- NOTE | 2024-06-28 13:23 | Anesthesiology Consultation ---
Date of Service June 28, 2024 Assessment & Plan (1) Encounter for pre-operative examination: - Check BSG DOS - Infectious disease screening: Per assessment on 06/07/24- No known recent infectious disease contacts or current infectious disease symptoms. - Outpatient joint assessment: Pt currently scheduled for inpatient pathway. If surgeon requests review for outpatient joint pathway, patient is not recommended candidate for outpatient joint program from anesthesia standpoint based on available information. Chart Review Chart Review: Acceptable Risk for Surgery and Patient NOT seen in Pre Admission Testing History Surgery Operation Date: 07/03/24 07:00 Proposed Procedures p Left Total Hip Arthroplasty - Lorne Ford MD Height/Weight Height: 5 ft 1 in Weight: 77.111 kg Allergies Allergy/AdvReac Type Severity Reaction Status Date / Time MOLLY Inhibitors Allergy Mild Cough Verified 07/03/24 05:31 azithromycin [From Zithromax] Allergy Mild Unknown Verified 07/03/24 05:31 doxycycline Allergy Mild Nausea Verified 07/03/24 05:31 nitroglycerin Allergy Mild Headache Verified 07/03/24 05:31 [From Nitro-Bid] Sulfa (Sulfonamide Allergy Mild Rash Verified 07/03/24 05:31 Antibiotics) adhesive AdvReac Mild Rash (with Verified 07/03/24 05:31 prolonged use) morphine AdvReac Mild Nausea Verified 07/03/24 05:31 valsartan [From Diovan] AdvReac Mild Rash Verified 07/03/24 05:49 Medications Home Medications Medication Instructions Recorded Confirmed Last Taken lovastatin 40 mg tablet 40 mg PO PM #90 tabs 07/25/23 07/03/24 07/02/24 19:00 blood sugar diagnostic (OneTouch #100 ea 10/06/23 04/13/24 Unknown Ultra Test strips) ascorbate calcium (vitamin C) 500 1 g (2 x 500 mg) PO DAILY #30 tabs 02/28/24 07/03/24 06/19/24 09:00 mg tablet gabapentin 600 mg tablet 600 mg PO HS #90 tabs 04/13/24 07/03/24 07/02/24 19:00 metformin 500 mg tablet 250 mg (1/2 x 500 mg) PO BID #90 04/13/24 07/03/24 07/02/24 19:00 tabs omeprazole 20 mg tablet,delayed 20 mg PO QAM 04/13/24 07/03/24 07/02/24 09:00 release Diovan 320 mg tablet (valsartan) 160 mg (1/2 x 320 mg) PO BID #90 06/07/24 07/03/24 07/03/24 03:30 tabs aspirin 81 mg tablet,delayed 81 mg PO QPM 06/07/24 07/03/24 06/29/24 19:00 release (Adult Aspirin Regimen) cholecalciferol (vitamin D3) 10 20 mcg PO QAM 06/07/24 07/03/24 06/19/24 09:00 mcg (400 unit) capsule potassium chloride 10 mEq 10 meq PO QAM 06/07/24 07/03/24 07/02/24 09:00 capsule,extended release temazepam 15 mg capsule (Restoril) 15 mg PO HS PRN Sleep 07/03/24 07/03/24 07/01/24 21:00 Active Medications Generic Name Dose Route Start Last Admin Trade Name Freq PRN Reason Stop Dose Admin Acetaminophen 1,000 mg 07/03/24 06:00 07/03/24 06:04 Acetaminophen 500 Mg Tab PO 07/03/24 18:00 1,000 mg PREOP BEST Administration Celecoxib 200 mg 07/03/24 06:00 07/03/24 06:04 Celebrex 200 Mg Cap PO 07/03/24 18:00 200 mg PREOP BEST Administration Dexamethasone Sodium Phosphate 10 mg 07/03/24 06:00 07/03/24 06:04 DexamethasonePf 10 Mg/Ml Vial IV 07/03/24 18:00 10 mg PREOP BEST Administration Famotidine 20 mg 07/03/24 06:00 07/03/24 06:04 Famotidine 20 Mg Tab PO 07/03/24 18:00 20 mg PREOP BEST Administration Lactated Ringer's 1,000 mls @ 60 mls/hr 07/03/24 06:00 07/03/24 06:06 Lr IV 07/03/24 22:39 Not Given .[id number] BEST Lactated Ringer's 1,000 mls @ 15 mls/hr 07/03/24 06:00 07/03/24 05:50 Lr IV 07/03/24 18:00 15 mls/hr .Q24H BEST Administration Metoclopramide HCl 10 mg 07/03/24 06:00 07/03/24 06:04 Metoclopramide Hcl 10 Mg Tablet PO 07/03/24 18:00 10 mg PREOP BEST Administration Past Medical History Medical History Arthritis Asthma Stable, no inhaler CAD (coronary artery disease) stents x2 (2014) Degeneration of cervical intervertebral disc Diabetes mellitus Diverticulosis of colon Essential hypertension GERD (gastroesophageal reflux disease) History of colon polyps Hypercholesterolemia Lumbar spinal stenosis Primary osteoarthritis, left shoulder Restless leg syndrome Subclinical hypothyroidism Tubular adenoma of colon Past Family History Family History Mother Myocardial infarction Hypertension Father Sister Colorectal cancer Sister , age 78 Myocardial infarction Coronary heart disease Son Myocardial infarction, Onset Age: 52 Other Adverse anesthesia outcome Denies family history of Ovarian cancer Prostate cancer Breast cancer Lung cancer Stroke Past Surgical History Surgical History History of appendectomy History of arthroplasty of left shoulder History of excision of epidermal inclusion cyst (01/2016) Left gluteal site, Dr. Benson History of hysterectomy History of left shoulder replacement Hx of colonoscopy S/P cardiac catheterization (08/13/19) Angiographically mild to moderate 2 vessel occlusive coronary disease, patent stents in LAD. Mild reduced left ventricular systolic function. Normal LVEDP S/P carpal tunnel release S/P coronary artery stent placement (11/2014) x2 S/P tonsillectomy and adenoidectomy Social History Smoking Status: Never smoker Do You Dip or Chew Tobacco: No Hx Alcohol Use: No Hx Substance Use: No substance use type: does not use Physical Exam Vital Signs Last Vital Signs Temp 36.6 C 07/03/24 05:49 Pulse 95 H 07/03/24 05:49 Resp 18 07/03/24 05:49 BP 174/72 H 07/03/24 05:49 Pulse Ox 94 07/03/24 05:49 O2 Del Method Room Air 07/03/24 05:49 Lab Results Anesthesia Preop Results Results Anesthesia Widget: WBC 11.51 K/ul (4.8-10.8) H 06/14/24 Hgb 14.7 g/dl (12.0-16.0) 06/14/24 Hct 43.2 % (37.0-47.0) 06/14/24 Plt 348 K/uL (130-400) 06/14/24 Na 138 mmol/L (136-145) 06/14/24 K 4.1 mmol/L (3.5-5.1) 06/14/24 Cl 106 mmol/L (98-107) 06/14/24 CO2 26 mmol/L (21-32) 06/14/24 BUN 13 mg/dl (6-23) 06/14/24 Creat 0.72 mg/dl (0.6-1.2) 06/14/24 Glucose Level 100 mg/dl (70-99(Fasting)) H 06/14/24 POC Glucose 134 mg/dl (70-99) H 07/03/24 PT 10.3 Seconds (9.0-12.0) 06/14/24 PTT 30 Seconds (21-31) 06/14/24 INR 0.9 (0.9-1.1) 06/14/24 HA1c 6.4 % (4.5-5.6) H 06/14/24 Blood Type O Positive 06/14/24 Antibody Screen NEGATIVE 06/14/24 Testing Laboratory Results 07/03/24 05:32 POC Glucose 134 H Electrocardiogram Date: 06/14/24 SR with premature supraventricular complexes at 75bpm. "Otherwise normal ECG" Chest X-Ray Date: 06/14/24 FINDINGS: There is a large hiatal hernia, grossly stable. Stable mild cardiomegaly without pulmonary vascular congestion. No effusion, consolidation, or pneumothorax. There is an interval left shoulder prosthesis. IMPRESSION: No acute findings. Stable large hiatal hernia. Cardiac Catheterization Date: 08/13/19 Left main: angiographically normal LAD: widely patent medium size first diagonal artery, proximal 60% stenosis Cx: 40-50% stenosis RCA: angiographically nonobstructive EF 50% Angiographically mild to moderate 2 vessel occlusive coronary disease, patent stents in LAD
[2024-07-03] MEDS: LR 500ML BOLUS, THEN 15ML/HR IV SCH (05:50)
[2024-07-03] MEDS: dexAMETHasone**PF** 10 MG/ML VIAL IV SCH (06:04)
[2024-07-03] MEDS: CeleBREX 200 MG CAP PO SCH (06:04)
[2024-07-03] MEDS: ACETAMINOPHEN 500 MG TAB PO SCH ×2 (06:04→15:24)
[2024-07-03] MEDS: FAMOTIDINE 20 MG TAB PO SCH (06:04)
[2024-07-03] MEDS: METOCLOPRAMIDE HCL 10 MG TABLET PO SCH (06:04)
[2024-07-03] MEDS: LR 60ML/HR IV SCH (06:06)
[2024-07-03] MEDS ORDERED: MIDAZOLAM HCL 1 MG/ML 2ML VIAL ONE (06:19)
[2024-07-03] MEDS ORDERED: LIDOCAINE 2% 2 ML VIAL/AMP(20MG/ML) INFIL ONE (06:20)
[2024-07-03] MEDS ORDERED: ePHEDrine sulfate 50 MG/ML AMP ONE (06:20)
[2024-07-03] MEDS ORDERED: PHENYLEPHRINE HCL 10 MG/ML VIAL ONE (06:20)
[2024-07-03] MEDS ORDERED: fentaNYL citrate PF 100 MCG/2 ML VIAL ONE (06:20)
[2024-07-03] MEDS ORDERED: PROPOFOL IV EMULSION 10 MG/ML 20 ML VIAL IV ONE (06:20)
[2024-07-03] MEDS ORDERED: ONDANSETRON INJ 2 MG/ML 2 ML VIAL ONE (06:20)
[2024-07-03] MEDS ORDERED: ROPIVACAINE 0.5% 5 MG/ML 30 ML VIAL ONE (06:22)
[2024-07-03] MEDS ORDERED: WATER, STERILE FOR INJ 10 ML VIAL ONE (06:24)
[2024-07-03] MEDS ORDERED: ePHEDrine sulfate 50 MG/ML AMP IV PRN (06:39)
[2024-07-03] MEDS ORDERED: ATROPINE SULFATE 0.1 MG/ML 10ML SYR IV PRN (06:39)
[2024-07-03] MEDS ORDERED: HYDROmorphone INJ 1 MG/ML SYRINGE IV PRN (06:39)
[2024-07-03] MEDS ORDERED: ONDANSETRON INJ 2 MG/ML 2 ML VIAL IV PRN ×2 (06:39→09:52)
[2024-07-03] MEDS ORDERED: fentaNYL citrate PF 100 MCG/2 ML VIAL IV PRN (06:39)
[2024-07-03] MEDS: TRANEXAMIC ACID 1,000 MG **IV Pre-op IV SCH (06:40)
--- NOTE | 2024-07-03 06:45 | History & Physical Bridge Note ---
Date of Service July 03, 2024 History & Physical Bridge Note I have examined the patient, reviewed the History & Physical and in the interval since the performance of the History & Physical I have noted the following changes of clinical significance: no changes noted
[2024-07-03] MEDS: ceFAZolin 2000MG 2,000 MG/15 ML SYR IV SCH (07:00)
[2024-07-03] MEDS: BUPIVACAINE/EPINEPHRINE 0.5% MPF 1:200,000 30 ML VIAL ONE (07:36)
--- NOTE | 2024-07-03 08:22 | Operative Report ---
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 She had a significant joint effusion. Fairly good bone stock with good cancellous bone. That she had a chronic hip abductor avulsion and atrophy. There is really nothing to repair. Specimens Left femoral head sent for pathology. Anesthesia Type Spinal MAC Complications none Disposition Accompanied Patient To Recovery: No Indications Patient is a 78-year-old female whose had a gradual progressive increased in bilateral hip pain discomfort left side worse than the right patient been through extensive conservative treatment which became less successful over time. X-rays show bilateral hip arthritis. She elected proceed with left total hip arthroplasty. Description of Procedure Operative implants consists of: 1 Biomet G7 size 50 mm acetabular shell. 2. [place] hole retort loader. 3. 6.5 cancellous acetabular screws 135 mm in length and 120 mm length. 4. Highly cross-linked polyethylene liner with a 50 mm outer diameter and 36 mm inner diameter. 5. DePuy Corail size 9 KLA femoral stem. 6. +5/36 mm ceramic articular ball. The patient was taken the operating, identified, placed on the operating table in the supine position. All conductors were appropriately padded. IV antibiotics fibra anesthesia team. A spinal anesthetic had been implemented holding area. A Mancini catheter was placed in sterile fashion. The patient is then placed in the right lateral decubitus position. An axillary roll was placed. Stool Birkett position was used for positioning. Left hip and leg were then prepped and draped in usual sterile fashion. A posterolateral approach to the left hip was then performed to a curvilinear incision centered over the greater trochanteric. Sharp dissection was got through subcutaneous tissue down to of the IT band gluteal fascia. The IT. And gluteal fascia then incised longitudinally in line with skin incision. The underlying greater bursa was excised. The piriformis and external rotators along with the posterior hip joint capsule then released from the posterior aspect of the hip as a single layer. Of note, the patient did have a chronic hip abductor tear with complete atrophy of the muscles. There was really nothing to repair. The hip was then internally rotated and dislocated. Femoral neck osteotomy cut was made with Final Cut about 10 mm above the lesser trochanter. Femoral head was removed and sent for pathology. The femur was retracted anteriorly. Attention drawn the acetabulum. The acetabular labrum was excised. The pulmonary fat was excised. Sequential reaming the acetabular was then performed again with size 43 and progressing up to 49. I then reamed a little bit with a 50 reamer and placed a 50 mm Biomet G7 acetabular shell in about 40 degrees lateral opening and 20 degrees of anteversion. It was fixed with two 6.5 screws. The fairly significant anterior acetabular osteophyte was removed. Trial liner was placed. Attention then drawn the femur. The proximal femur was entered with cookie-cutter followed by canal finder. She had excellent cancellous bone. We broached beginning the size 8 and then progressed to a 9. Could not quite get the 9 down. We trialed this and it was extremely stable. This seemed to recreate her leg lengths equal. It was stable in all positions. We elect to place these implants. All trial implants were removed. An apex hole retort loader was placed. Highly cross-linked polyethylene liner was placed. A size 9 KLA femoral stem was impacted in position. A +5/36 mm ceramic articular ball was placed. The hip was located and once again found to be stable. Attention drawn toward closing. The wound was irrigated with copious benigno of pulsatile lavage solution. The patient was injected with 60 cc of half percent Marcaine with epinephrine. Once again, there was nothing really repair in the abductor tissues. The posterior capsule along with the external rotators were then repaired through the posterior aspect the greater trochanter with a drill holes and #2 Tycron suture. The IT band gluteal fascia were then closed in 1 PDS suture running fashion with subcutaneous tissues then closed with 2 layers of the deep layer and 1 Vicryl suture and subcutaneous tissues with 2 Dexon suture in a buried interrupted fashion. Skin was closed skin natalie. Leg was then cleaned and dried and sterile dressed with Xeroform, 4 fours, sterile ABD pad and foam tape was applied. The patient then transferred to the recovery room in stable condition. Patient tolerated procedure well and there were no complications. Jeremi Galindo, my physician printing assistant, was present for the entire procedure. His assistance was essential and required for appropriate patient positioning, prepping and draping, surgical exposure, performing the technical details of the operation, placement the implants, closure of the wound, and placement of the sterile bandage. I attest to the content of the Intraoperative Record and any orders documented therein. Any exceptions are noted below.
--- NOTE | 2024-07-03 09:10 | XRay Report ---
XR hip 1V LT w pelvis HISTORY: 78 years-old Female IN PACU - Post Surgical left hip arthroplasty COMPARISON: 06/07/2024 TECHNIQUE: AP view of the pelvis with crosstable lateral view of the left hip FINDINGS: Moderate to severe osteoarthritis of the right hip. Satisfactory alignment of the left hip arthroplas ty with lateral skin natalie, expected postoperative soft tissue swelling with deep tissue air. IMPRESSION: Left hip arthroplasty with expected postoperative changes. ACT 112: Negative or not required by law. The above report was generated using voice recognition software. It may contain grammatical, syntax o r spelling errors. Electronically signed by: Armand Leon M.D. 07/03/2024 9:08 AM
--- NOTE | 2024-07-03 09:40 | Anesthesiology Progress Note ---
Date of Service July 03, 2024 Anesthesia Post Procedure Vital Signs Vital Signs: Temp Pulse Pulse Resp BP Pulse Ox O2 Del Method 07/03/24 09:30 85 17 143/67 H 98 Nasal Cannula 07/03/24 09:15 81 12 151/64 H 98 Nasal Cannula 07/03/24 09:05 84 12 140/62 98 Nasal Cannula 07/03/24 08:50 36.4 C L 85 18 123/62 93 Room Air 07/03/24 08:40 86 17 134/65 93 Room Air 07/03/24 08:30 85 15 128/60 93 Room Air 07/03/24 08:20 84 17 122/54 L 100 Oxymask 07/03/24 08:11 36.3 C L 88 12 129/63 95 Oxymask 07/03/24 05:49 36.6 C 95 H 18 174/72 H 94 Room Air O2 Flow Rate 07/03/24 09:30 2 07/03/24 09:15 2 07/03/24 09:05 2 07/03/24 08:50 07/03/24 08:40 07/03/24 08:30 07/03/24 08:20 7 07/03/24 08:11 7 07/03/24 05:49 Pain Intensity Left Foot: Pain Intensity: 4 Transfer of Care Handoff Completed per policy Notes Mental Status: alert / awake / arousable and participated in evaluation Patient Amnestic to Procedure: Yes Nausea / Vomiting: adequately controlled Pain: adequately controlled Airway Patency, RR, SpO2: stable & adequate BP & HR: stable & adequate Hydration State: stable & adequate Neuraxial Anesthesia: was administered and sensory block is resolving Anesthetic Complications: no major complications apparent and Pt Satisfied with anesthetic care
[2024-07-03] MEDS ORDERED: GLUCOSE 40% GEL 15 GM TUBE PO PRN (09:52)
[2024-07-03] MEDS ORDERED: METOCLOPRAMIDE HCL INJ 5 MG/ML 2 ML VIAL IV PRN (09:52)
[2024-07-03] MEDS ORDERED: GLUCAGON FOR INJ 1 MG VIAL SQ PRN (09:52)
[2024-07-03] MEDS ORDERED: TEMAZEPAM 15 MG CAPSULE PO PRN (09:52)
[2024-07-03] MEDS ORDERED: DEXTROSE 50% 50 ML SYRINGE IV PRN (09:52)
[2024-07-03] MEDS ORDERED: GLUCOSE 10 TAB/TUBE PO PRN (09:52)
[2024-07-03] MEDS ORDERED: CARBOHYDRATES FOR HYPOGLYCEMIA PO PRN (09:52)
[2024-07-03] MEDS ORDERED: NALOXONE HCL 0.4 MG/1 ML VIAL/CARP IV PRN (09:52)
[2024-07-03] MEDS ORDERED: HYDROmorphone INJ 0.5 MG/0.5 ML SYR IV PRN (09:52)
[2024-07-03] MEDS ORDERED: bisacodyL 10 MG SUPP PR PRN (09:52)
[2024-07-03] MEDS ORDERED: ALUMINUM/MAGNESIUM SUSP 30 ML UDC PO PRN (09:52)
[2024-07-03] MEDS ORDERED: PHARMACY GLYCEMIC MGMT CONSULT PRN (09:52)
[2024-07-03] MEDS ORDERED: MAGNESIUM HYDROXIDE SUSP 30 ML UDC PO PRN (09:52)
[2024-07-03] MEDS: ASPIRIN 81 MG ECTAB PO SCH (11:17)
[2024-07-03] MEDS: CHOLECALCIFEROL 10 MCG (400 UNITS) TAB PO SCH (11:17)
[2024-07-03] MEDS: MULTIVITAMIN TAB PO SCH (11:17)
[2024-07-03] MEDS: PANTOprazole 40 MG TAB PO SCH (11:17)
[2024-07-03] MEDS: KETOROLAC TROMETHAMINE 15 MG/ML VIAL IV SCH (11:20)
[2024-07-03] MEDS: POTASSIUM CHLORIDE 10 MEQ TABCR PO SCH (11:20)
[2024-07-03] MEDS: DOCUSATE SODIUM 100 MG CAP PO SCH (11:20)
[2024-07-03] MEDS: INSULIN ASPART PER UNIT CHARGE SC SCH (12:49)
[2024-07-03] MEDS: LANTUS PER UNIT CHARGE SC ONE (12:50)
--- NOTE | 2024-07-03 15:18 | Pharmacy Report ---
Pharmacy Glycemic Short Note 2 - Date of Service July 03, 2024 - Glycemic Short BSG Results (Last 24 hours): 07/03/24 07/03/24 07/03/24 05:32 08:17 11:33 POC Glucose 134 H 162 H 243 H OUTPATIENT ANTIDIABETIC REGIMEN: * metformin 250mg PO BID * HbA1c 6.4% (06/14/24) ASSESSMENT: * Shandra is a 78 YOF admitted status post left total hip arthroplasty with a history of T2DM. Pharmacy has been consulted to assist with glycemic management while inpatient. * Preoperative BSG within goal range, postoperative BSG significantly elevated, initiated Lantus at ~0.3 units/kg x1 to cover steroid induced hyperglycemia, reassess basal insulin in AM with additional dex dosing * NovoLog initiated at a weight based stress of 3 PLAN FOR INPATIENT GLYCEMIC CONTROL: * Hold outpatient oral diabetes medications * Basal insulin * Lantus 20 units SQ x1 * Bolus insulin * NovoLog per scale ACHS or Q6hrs while NPO * Goal Range: Low 110 mg/dL - High 140 mg/dL * Correction Factor: 20 mg/dL/unit * Nutritional / Prandial insulin per carb ratio of 1 unit per 7 grams CHO consumed
[2024-07-03] MEDS: ceFAZolin 1000MG 1,000 MG/7.5 ML SYR IV SCH (15:25)
[2024-07-03] MEDS: TRANEXAMIC ACID / 0.7% NACL 1,000 MG/100 ML BAG IV SCH (15:56)
[2024-07-03] MEDS: ASCORBIC ACID 500 MG TAB PO SCH (17:27)
[2024-07-03] MEDS: traMADol HCL 50 MG TABLET PO PRN (17:43)
[2024-07-03] MEDS: GABAPENTIN 600 MG TAB PO SCH (21:49)
[2024-07-03] MEDS: LOVASTATIN 20 MG TAB PO SCH (21:49)
[2024-07-03] MEDS: SENNA 8.6 MG TAB PO SCH (21:51)
[2024-07-04 07:35] VITALS: BP 148/76; PULSE 71; RESP 18; TEMP 98.1; O2SAT 91
[2024-07-04 08:11] LABS: Basophils # (auto) 0.03 K/uL (0.00-0.20); Basophils % (auto) 0.2 %; Eosinophils # (auto) 0.13 K/uL (0.00-0.50); Eosinophils % (auto) 0.9 %; Hematocrit (blood only) 34.2 % (37.0-47.0); Hemoglobin 11.9 g/dl (12.0-16.0); Immature Granulocytes # (auto) 0.08 K/uL (0.01-0.20); Immature Granulocytes % (auto) 0.5 %; Lymphocytes # (auto) 2.82 K/uL (1.20-3.40); Lymphocytes % (auto) 18.6 %; Mean Corpuscular Hgb Conc 34.8 g/dL (32.0-36.0); Mean Corpuscular Volume 86.1 fL (80.0-100.0); Mean Platelet Volume 9.5 fL (9.4-12.4); Monocytes # (auto) 1.09 K/uL (0.11-0.59); Monocytes % (auto) 7.2 %; Neutrophils # (auto) 11.05 K/uL (1.40-6.50); Neutrophils % (auto) 72.6 %; Platelet Count 294 K/uL (130-400); RDW Coefficient of Variation 12.7 % (11.5-14.5); RDW Standard Deviation 40.3 fL (36.4-46.3); Red Blood Count 3.97 M/uL (4.20-5.40)
[2024-07-04 08:34] LABS: BUN Creatinine Ratio 17.3 (10-20); Calcium 8.6 mg/dl (8.6-10.3); Creatinine Clr Calc Pharmacy 58.7 ml/min; Potassium 3.4 mmol/L (3.5-5.1)
[2024-07-04] MEDS: dexAMETHasone 10 MG in SYRINGE 0 ML IV SCH (08:46)
[2024-07-04] MEDS: LANTUS PER UNIT CHARGE SC ONE (08:47)
--- NOTE | 2024-07-04 09:23 | Orthopedic Progress Note ---
Date of Service July 04, 2024 Assessment & Plan (1) Status post left hip replacement: Assessment: Status post left total hip arthroplasty. Plan: Overall, she is doing quite well today with good pain control left hip. She will work with physical therapy later this morning to work on ambulation and range of motion exercises. She is on aspirin for DVT prophylaxis. She can be discharged home later this morning pending formal physical therapy evaluation and recommendation. She will follow-up with orthopedics in 2 weeks for postoperative management or sooner if needed. Subjective . Shandra was seen and evaluated this morning resting comfortably in no apparent distress. She notes that she has good pain control to the left hip. She has been up and out of bed without any significant issues. She has yet to work physical therapy today. She denies any concerns with surgical incision site. Denies any active bleeding, discharge, or signs of infection. She denies any other concerns today. Review of Systems All systems reviewed & are unremarkable except as noted in HPI & below. Physical Exam . On physical examination of the left hip, dressings are clean, dry, and intact with no signs of active bleeding, discharge, or signs of infection. No tenderness to palpation. Leg is out in full extension. Limited range of motion secondary to postoperative stiffness soreness. Calf soft nontender to palpation. Negative Homans' sign. Intact plantarflexion dorsiflexion to the left ankle. +2 DP and PT pulse. Less than 2-second capillary refill. Normal sensation. Neurovascular intact. Results & Data Results & Data Laboratory Results . Diagnostic Findings . Hip/Pelvis X-Ray 07/03/24 08:15 XR hip 1V LT w pelvis HISTORY: 78 years-old Female IN PACU - Post Surgical left hip arthroplasty COMPARISON: 06/07/2024 TECHNIQUE: AP view of the pelvis with crosstable lateral view of the left hip FINDINGS: Moderate to severe osteoarthritis of the right hip. Satisfactory alignment of the left hip arthroplasty with lateral skin natalie, expected postoperative soft tissue swelling with deep tissue air. IMPRESSION: Left hip arthroplasty with expected postoperative changes. ACT 112: Negative or not required by law. The above report was generated using voice recognition software. It may contain grammatical, syntax or spelling errors. Electronically signed by: Armand Leon M.D. 07/03/2024 9:08 AM PG Care Time/CCT Total # of Minutes Spent Total Time Spent with Patient: Total time spent is greater than 50% in coordination of care (as documented) at patient's floor/unit and/or counseling patient: Coding Level of Care Code 97772 Post Operative Follow-Up Diagnoses Status post left hip replacement Z96.642
== END 2024-07-04 16:15 | disposition home health service (06) | DRG 470 ==
LOC: ASU 05:07 → INTOOBSV 08:15 → 3W 08:15